=== PATIENT | female | born 1975 | race Caucasian/White ===

== ENCOUNTER 2020-03-07 08:14 | Outpatient (REF) | payer OTHER, SELFPAY ==
--- NOTE | 2020-03-07 08:19 | MM_ITS ---
EXAMINATION: MM SCREENING DIGITAL BREAST TOMOSYNTHESIS, BILATERAL CLINICAL INFORMATION: Screening. Asymptomatic. The lifetime risk of breast cancer based on the Tyrer-Cuzick Model is 12%. COMPARISON: Mammography: 10/19/2018 (baseline). TECHNIQUE: Digital breast tomosynthesis is performed in both the craniocaudal and mediolateral oblique views along with computer-aided detection (CAD). Synthesized 2D images are generated from the tomosynthesis. Additional bilateral CC views are provided. FINDINGS: There are scattered areas of fibroglandular density (ACR BI-RADS breast composition Category b). There are no significant masses, abnormal calcifications, or other abnormalities. There is small stable nodule central left breast again seen. No significant changes from prior baseline exam. MM/MM tomosynthesis screening BI IMPRESSION: No mammographic evidence of malignancy. ASSESSMENT: BI-RADS 2: Benign RECOMMENDATION: Routine annual mammography screening. This patient's information was entered into a reminder system with a target due date for their next mammogram.
== END 2020-03-07 08:15 | disposition home or self-care (01) ==
LOC: HO.MAMMO 08:14
PROVIDERS: PCP Nurse Practitioner Family; Visit Provider Nurse Practitioner Family
DX: Z12.31 Encounter for screening mammogram for malignant neoplasm of breast (principal)
CPT/HCPCS: 77063; 77067

== ENCOUNTER 2020-03-31 10:40 | Outpatient (REF) | payer OTHER, SELFPAY ==
[2020-03-31 14:37] LABS: Alanine Aminotransferase 14 U/L (0-31); Albumin Level 4.2 g/dL (3.5-5.0); Alkaline Phosphatase 82 U/L (39-117); Anion Gap 12 (12-20); Aspartate Amino Transferase 12 U/L (5-31); Bilirubin Total 0.4 mg/dL (0.0-1.0); Blood Urea Nitrogen 11 mg/dL (9-16); Calcium 8.9 mg/dL (8.4-10.2); Carbon Dioxide 30 mmol/L (22-29); Chloride 102 mmol/L (96-108); Cholesterol 161 mg/dL; Estimated Glomerular Filt Rate > 60; Glucose Fasting 86 mg/dL (60-99); HDL Cholesterol 44 mg/dL; LDL Cholesterol Calculated 103 mg/dl; Potassium 4.7 mmol/l (3.3-5.1); Sodium 139 mmol/L (135-145); Total Protein 6.9 g/dL (6.5-8.0); Triglycerides 74 mg/dL
== END 2020-03-31 10:41 | disposition home or self-care (01) ==
LOC: HO.HMGCLDS 10:40
PROVIDERS: PCP Nurse Practitioner Family; Visit Provider Nurse Practitioner Family
DX: Z00.00 Encounter for general adult medical examination without abnormal findings (principal)
CPT/HCPCS: 80053; 80061; 84443

== ENCOUNTER 2020-04-16 16:18 | Outpatient (REF) | payer OTHER, SELFPAY ==
--- NOTE | 2020-04-16 16:22 | US_ITS ---
EXAMINATION: US THYROID CLINICAL INFORMATION: Nontoxic goiter, unspecified. COMPARISON: None TECHNIQUE: Linear transducer wong-scale and color Doppler examination with attention to the region of the thyroid. FINDINGS: SIZE: Measurements of the thyroid lobes and nodules are given in sagittal, anteroposterior and transverse dimensions respectively. Right Thyroid Lobe: 5 x 1.9 x 2.2 cm, volume 10.7 mL. Parenchyma: The gland echotexture is homogeneous. Thyroid vascularity is normal. Left Thyroid Lobe: 4.8 x 1.3 x 1.6 cm, volume 5.3 mL. Parenchyma: The gland echotexture is homogeneous. Thyroid vascularity is normal. Isthmus: 0.5 cm in maximum AP dimension. RIGHT THYROID LOBE: There are 3 nodules seen. 1. Location: Superior. Size: 0.5 x 0.4 x 0.6 cm. Nodule characteristics: Hypoechoic, smoothly marginated with no intranodular flow, simple cyst. 2. Location: Middle. Size: 0.3 x 0.2 x 0.3 cm. Nodule characteristics: Hypoechoic, smoothly marginated with no intranodular flow, likely simple cyst. 3. Location: Inferior. Size: 1.8 x 0.9 x 1.5 cm. Nodule characteristics: Isoechoic, smoothly marginated with intranodular flow, solid lesion. ISTHMUS: No nodules. LEFT THYROID LOBE: There is 1 nodule seen. 1. Location: Inferior. Size: 0.4 x 0.4 x 0.3 cm. Nodule characteristics: Hypoechoic, smoothly marginated with no intranodular flow, likely simple cyst. NODES: No lymphadenopathy is seen in the tissue surrounding the thyroid gland. US/US thyroid IMPRESSION: Solid nodule lower pole left thyroid lobe measuring 1.8 cm, mildly vascular. As per ACR TI-RADS, the lesion is mildly suspicious with a score of 3.
== END 2020-04-16 16:19 | disposition home or self-care (01) ==
LOC: HO.US 16:18
PROVIDERS: PCP Nurse Practitioner Family; Visit Provider Nurse Practitioner Family
DX: E04.9 Nontoxic goiter, unspecified (principal)
CPT/HCPCS: 76536

== ENCOUNTER 2020-06-24 09:48 | Outpatient (REF) | payer OTHER, SELFPAY | END 2020-06-24 09:49 | disposition home or self-care (01) | LOC: HO.LAB 09:48 | PROVIDERS: Visit Provider Internal Medicine | DX: Z20.822 Contact with and (suspected) exposure to COVID-19 (principal) | CPT/HCPCS: 36415; C9803; U0003; U0005 ==

== ENCOUNTER → 2020-07-06 07:39 | Outpatient (BNVA) | payer OTHER, SELFPAY | PROVIDERS: PCP Nurse Practitioner Family; Referring Provider Nurse Practitioner Family; Visit Provider Internal Medicine ==

== ENCOUNTER 2020-07-07 07:26 | Outpatient (REF) | payer OTHER, SELFPAY ==
[2020-07-07 08:17] LABS: Estimated Average Glucose 117 mg/dL; Hemoglobin A1c % 5.7 %
[2020-07-07 08:18] LABS: Glucose Fasting 98 mg/dL (60-99)
[2020-07-07 08:25] LABS: Alanine Aminotransferase 16 U/L (0-31); Albumin Level 3.9 g/dL (3.5-5.0); Alkaline Phosphatase 73 U/L (39-117); Anion Gap 12 (12-20); Aspartate Amino Transferase 12 U/L (5-31); Bilirubin Total 0.6 mg/dL (0.0-1.0); Blood Urea Nitrogen 10 mg/dL (9-16); Calcium 8.5 mg/dL (8.4-10.2); Carbon Dioxide 25 mmol/L (22-29); Chloride 105 mmol/L (96-108); Cholesterol 136 mg/dL; Estimated Glomerular Filt Rate > 60; Glucose Random 97 mg/dL (60-115); HDL Cholesterol 43 mg/dL; LDL Cholesterol Calculated 80 mg/dl; Potassium 4.5 mmol/L (3.3-5.1); Sodium 137 mmol/L (135-145); Total Protein 6.3 g/dL (6.5-8.0); Triglycerides 65 mg/dL
[2020-07-07 08:47] LABS: Free T4 (Free Thyroxine) 0.87 ng/dL (0.71-1.85); HCG Quantitative < 2 mIU/mL; Thyroid Stimulating Hormone 1.58 uIU/mL (0.32-4.0); Vitamin D 25-OH Total 8.4 ng/mL (>30)
[2020-07-07 10:02] LABS: Glucose 1 Hour 170 mg/dL
[2020-07-07 11:03] LABS: Glucose 2 Hour 87 mg/dL
[2020-07-08 23:26] LABS: Adrenocorticotropic Hormone 10 pg/mL (6-50)
[2020-07-09 13:53] LABS: LDL Cholesterol Direct 79 mg/dL (<100)
[2020-07-09 18:41] LABS: Follicle Stimulating Hormone 3.3 mIU/mL; Lutenizing Hormone 5.6 mIU/mL; Prolactin 14.1 ng/mL
[2020-07-09 19:06] LABS: DHEA Sulfate 140 mcg/dL (19-231); Sex Hormone Binding Globulin 30 nmol/L (17-124)
[2020-07-10 01:02] LABS: Estradiol Ultra Sensitive 220 pg/mL
[2020-07-10 17:57] LABS: Androstenedione 94 ng/dL
[2020-07-11 19:26] LABS: Testosterone, Free 2.7 pg/mL (0.1-6.4); Testosterone, Total 20 ng/dL (2-45)
[2020-07-15 21:53] LABS: Estradiol Free 5.16 pg/mL; Estradiol, Ultrasensitive 220 pg/mL
== END 2020-07-07 07:27 | disposition home or self-care (01) ==
LOC: HO.LAB 07:26
PROVIDERS: PCP Nurse Practitioner Family; Visit Provider Internal Medicine
DX: N92.6 Irregular menstruation, unspecified (principal); E55.9 Vitamin D deficiency, unspecified
CPT/HCPCS: 36415; 80053; 80061; 82024; 82157; 82306; 82533; 82627; 82670; 82681; 83001; 83002; 83036; 83498; 83721; 84146; 84270; 84402; 84403; 84439; 84443; 84702

== ENCOUNTER 2020-08-20 07:39 | Outpatient (REF) | payer OTHER, SELFPAY ==
[2020-08-20 08:05] LABS: COVID-19 Test Negative (Negative)
== END 2020-08-20 07:40 | disposition home or self-care (01) ==
LOC: HO.LAB 07:39
PROVIDERS: Visit Provider Internal Medicine
DX: Z20.822 Contact with and (suspected) exposure to COVID-19 (principal)
CPT/HCPCS: 36415; 87635; C9803

== ENCOUNTER 2021-04-05 08:31 | Outpatient (REF) | payer OTHER, SELFPAY | END 2021-04-05 08:32 | disposition home or self-care (01) | LOC: HO.HMGCLDS 08:31 | PROVIDERS: Internal Medicine; PCP Nurse Practitioner Family; Visit Provider Nurse Practitioner Family | DX: Z20.822 Contact with and (suspected) exposure to COVID-19 (principal) | CPT/HCPCS: C9803; U0003; U0005 ==

== ENCOUNTER 2021-07-22 08:17 | Outpatient (REF) | payer OTHER, SELFPAY ==
[2021-07-23 12:26] LABS: CT PCR NOT DETECTED (Not Detect.); NG PCR NOT DETECTED (Not Detect.)
[2021-07-23 13:15] LABS: BV Int Neg Control Negative (Negative); BV Int Pos Control Positive (Positive)
[2021-07-26 14:26] LABS: HPV mRNA E6/E7 rflx Not Detected (Not Detected)
== END 2021-07-22 08:18 | disposition home or self-care (01) ==
LOC: HO.LAB 08:17
PROVIDERS: Visit Provider Advanced Practice Midwife
DX: Z01.411 Encounter for gynecological examination (general) (routine) with abnormal findings (principal); Z11.51 Encounter for screening for human papillomavirus (HPV); N92.6 Irregular menstruation, unspecified; N93.9 Abnormal uterine and vaginal bleeding, unspecified; E04.2 Nontoxic multinodular goiter; E66.9 Obesity, unspecified; Z20.2 Contact with and (suspected) exposure to infections with a predominantly sexual mode of transmission; Z87.42 Personal history of other diseases of the female genital tract
CPT/HCPCS: 81025; 87480; 87491; 87510; 87591; 87624; 87660; 88142

== ENCOUNTER 2021-08-11 12:17 | Outpatient (REF) | payer OTHER, SELFPAY ==
--- NOTE | ~2021-08-11 | US_ITS ---
EXAMINATION: US PELVIS CLINICAL INFORMATION: Irregular menstruation. COMPARISON: 06/19/2014 TECHNIQUE: Ultrasound of the pelvis is performed using both transabdominal and transvaginal transducers along with Doppler. Transvaginal imaging is performed due to inadequate visualization transabdominally. FINDINGS: Uterus: The uterus is measuring 13.5 x 4.7 x 7.5 cm. Anteverted. Retroflexed. The endometrial thickness is measured at 1.4 cm. The uterus is demonstrating a probable myometrial fibroid on the left measuring 3.7 x 4 x 2.5 cm. On the imaging submitted a submucosal component cannot be excluded. In the lower uterine segment a probable small fibroid at 2.5 x 1.7 x 2.4 cm near the cervix. No other evidence for fibroid change. The right ovary is not seen. Left ovary is not seen. US/US pelvic and transvaginal IMPRESSION: Exam is limited due to patient body habitus and only partially filled bladder. The endometrial thickness is measured at 1.4 cm. This could be normal for later phase of the cycle. Otherwise hyperplasia or polyp formation cannot be excluded. Two fibroids are identified here on the left. Submucosal component involving the larger fibroid cannot be excluded.
== END 2021-08-11 12:18 | disposition home or self-care (01) ==
LOC: HO.US 12:17
PROVIDERS: Visit Provider Advanced Practice Midwife
DX: N92.6 Irregular menstruation, unspecified (principal); N93.9 Abnormal uterine and vaginal bleeding, unspecified; E04.2 Nontoxic multinodular goiter; E66.9 Obesity, unspecified; Z87.42 Personal history of other diseases of the female genital tract
CPT/HCPCS: 76830; 76856

== ENCOUNTER 2021-08-27 13:34 | Outpatient (REF) | payer OTHER, SELFPAY | END 2021-08-27 13:35 | disposition home or self-care (01) | LOC: HO.LAB 13:34 | PROVIDERS: PCP Nurse Practitioner Family; Visit Provider Advanced Practice Midwife | DX: N92.6 Irregular menstruation, unspecified (principal); N93.9 Abnormal uterine and vaginal bleeding, unspecified; E66.01 Morbid (severe) obesity due to excess calories; R93.89 Abnormal findings on diagnostic imaging of other specified body structures | CPT/HCPCS: 58100; 81025; 88305 ==

== ENCOUNTER → 2021-09-03 13:00 | Outpatient (BNVA) | payer OTHER, SELFPAY | PROVIDERS: Visit Provider Advanced Practice Midwife | DX: R93.89 Abnormal findings on diagnostic imaging of other specified body structures (principal) ==

== ENCOUNTER 2021-10-20 14:09 | Outpatient (REF) | payer OTHER, SELFPAY ==
--- NOTE | ~2021-10-20 | MM_ITS ---
EXAMINATION: MM SCREENING DIGITAL BREAST TOMOSYNTHESIS, BILATERAL CLINICAL INFORMATION: Screening. Asymptomatic. The lifetime risk of breast cancer based on the Tyrer-Cuzick Model is 10%. COMPARISON: Mammography: 03/07/2020, 10/19/2018 (baseline) TECHNIQUE: Digital breast tomosynthesis is performed in both the craniocaudal and mediolateral oblique views along with computer-aided detection (CAD). Synthesized 2D images are generated from the tomosynthesis. FINDINGS: There are scattered areas of fibroglandular density (ACR BI-RADS breast composition Category b). There are no significant masses, abnormal calcifications, or other abnormalities. There is stable small circumscribed nodule central left breast similar to prior study. No developing density. The axilla are unremarkable. No significant changes. MM/MM tomosynthesis screening BI IMPRESSION: No mammographic evidence of malignancy. ASSESSMENT: BI-RADS 2: Benign RECOMMENDATION: Routine annual mammography screening. This patient's information was entered into a reminder system with a target due date for their next mammogram.
== END 2021-10-20 14:10 | disposition home or self-care (01) ==
LOC: HO.MAMMO 14:09
PROVIDERS: Visit Provider Obstetrics & Gynecology
DX: Z12.31 Encounter for screening mammogram for malignant neoplasm of breast (principal)
CPT/HCPCS: 77063; 77067

== ENCOUNTER 2021-12-30 09:44 | Outpatient (REF) | payer OTHER, SELFPAY ==
--- NOTE | 2021-12-30 10:23 | P.BOP_ITS ---
Brief Operative Note Date of Service: 12/30/21 Pre-op diagnosis: Thyroid Nodule Procedure: This is doctor Elizabeth Schulte. This is an ultrasound-guided fine-needle aspiration report. Date of Examination: Indication: Multinodular Thyroid Porcedure: Procedure was explained to the patient. Alternatives, the risk and benefits were discussed. Written consent was obtained. A time-out was also obtained. After sterile preparation, fine-needle aspiration of a right lower pole 1.8 cm thyroid nodule was performed using direct ultrasound guidance to confirm accurate needle placement. Four aspirations were made using 27 gauge needles. One additional aspiration was made using a 25 guage needle. Samples were submitted for cytology. 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 The patient tolerated the procedure well. Aftercare instructions were provided. Impression: Uncomplicated fine needle aspiration biopsy of a right lower pole 1.8 cm thyroid nodule under ultrasound guidance. Surgeon: Elizabeth Schulte, DO Was an Structural Steel Trades Worker used for this Procedure?: No Estimated blood loss (mL): 0
[2021-12-30 10:45] LABS: MANUAL DIFF FLAG NO
[2021-12-30 11:41] LABS: Hematocrit 39.6 % (37.0-47.0); Hemoglobin 12.5 g/dl (12.0-16.0); Mean Corpuscular HGB Conc 31.6 g/dl (31.0-35.0); Mean Corpuscular Hemoglobin 26.4 pg (27.0-33.0); Mean Corpuscular Volume 83.7 fL (80.0-98.0); Mean Platelet Volume 8.8 fL (9.4-12.3); Platelet Count 382 X10*3/uL (160-400); Red Blood Count 4.73 X10*6/uL (4.20-5.50); Red Cell Distribution Width 14.3 % (11.0-16.0); White Blood Count 8.9 X10*3/uL (4.8-10.8)
[2021-12-30] MEDS: Lidocaine HCl 1 % MPF 5 ML VIAL 2 ML SUBCUT (11:41)
[2021-12-30 11:42] LABS: Basophils Percent Auto 0.3 % (0-2); Eosinophils Absolute Auto 0.1 X10*3/uL (0.0-0.4); Eosinophils Percent Auto 1.2 % (0-4); Hematocrit 39.6 % (37.0-47.0); Hemoglobin 12.5 g/dl (12.0-16.0); Imm Gran Abs Auto 0.04 X10*3/uL (0.00-0.03); Imm Gran Pct Auto 0.4 % (0.0-0.4); Lymphocytes Absolute Auto 2.4 X10*3/uL (1.2-4.9); Lymphocytes Percent Auto 26.8 % (20-40); Mean Corpuscular HGB Conc 31.6 g/dl (31.0-35.0); Mean Corpuscular Hemoglobin 26.4 pg (27.0-33.0); Mean Corpuscular Volume 83.7 fL (80.0-98.0); Mean Platelet Volume 8.8 fL (9.4-12.3); Monocytes Absolute Auto 0.6 X10*3/uL (0.1-1.2); Monocytes Percent Auto 6.9 % (2-11); Neutrophils Absolute Auto 5.8 x10*3/uL (2.0-8.3); Neutrophils Percent Auto 64.4 % (45-73); Platelet Count 380 X10*3/uL (160-400); Red Blood Count 4.73 X10*6/uL (4.20-5.50); Red Cell Distribution Width 14.2 % (11.0-16.0)
[2021-12-30 11:42] LABS: Appearance Urine Clear; Color Urine Yellow; Glucose Urine UA Negative (Negative); Leukocyte Esterase Urine Negative (Negative); Nitrite Urine Negative (Negative); Urine Blood Negative (Negative); Urine Ketones Negative (Negative); Urine Protein Negative (Neg-Trace)
[2021-12-30 12:11] LABS: HCG Quantitative < 2 mIU/mL
[2021-12-30 12:18] LABS: Alanine Aminotransferase 15 U/L (0-31); Albumin Level 4.1 g/dL (3.5-5.0); Alkaline Phosphatase 81 U/L (39-117); Anion Gap 14 (12-20); Aspartate Amino Transferase 11 U/L (5-31); Bilirubin Total 0.5 mg/dL (0.0-1.0); Blood Urea Nitrogen 10 mg/dL (9-16); Calcium 9.3 mg/dL (8.4-10.2); Carbon Dioxide 28 mmol/L (22-29); Chloride 104 mmol/L (96-108); Cholesterol 138 mg/dL; Estimated Glomerular Filt Rate > 60; Glucose Fasting 89 mg/dL (60-99); HDL Cholesterol 38 mg/dL; LDL Cholesterol Calculated 86 mg/dl; Potassium 4.8 mmol/L (3.3-5.1); Sodium 141 mmol/L (135-145); Total Protein 6.6 g/dL (6.5-8.0); Triglycerides 73 mg/dL
[2021-12-30 12:40] LABS: TSH reflex Free T4 1.19 uIU/mL (0.32-4.0)
== END 2021-12-30 09:45 | disposition home or self-care (01) ==
LOC: HO.US 09:44
PROVIDERS: Obstetrics & Gynecology; Absent Provider Nurse Practitioner Family; PCP Nurse Practitioner Family; Visit Provider Internal Medicine
DX: Z00.00 Encounter for general adult medical examination without abnormal findings (principal); E04.2 Nontoxic multinodular goiter; N93.9 Abnormal uterine and vaginal bleeding, unspecified
CPT/HCPCS: 10005; 36415; 80053; 80061; 81003; 84443; 84702; 85025; 85027; 88172; 88173

== ENCOUNTER 2022-09-01 07:25 | Day surgery (SDC) | payer OTHER, SELFPAY ==
[2022-08-30 12:40] VITALS: BMI 40.5
--- NOTE | 2022-08-31 12:36 | HO.ANESPROP2 ---
Documented by User: Cassandra Pino NP 08/31/22 12:37 HPI - Anesthesia Eval Consult details Narrative: 46yo F for Upper Endoscopy and Colonoscopy [facility] Active Problems Active Problems: All Active Problems (Updated 11/09/21 @ 17:46 by Heladio Castañeda, [facility]) Physical exam (Acute) Screening for colon cancer (Acute) Abnormal uterine bleeding (Acute) Uterine myoma (Acute) Obesity, morbid, BMI 40.0-49.9 (Acute) Thickened endometrium (Acute) Abnormal bleeding in menstrual cycle (Acute) History of PCOS (Acute) Vitamin D deficiency (Acute) Irregular menses (Acute) Multinodular thyroid (Acute) Thyroid nodule (Acute) Skin lesion (Acute) Enlarged thyroid (Acute) Obese (Acute) Physical exam (Acute) Screening for cervical cancer (Acute) Past Medical History Medical History Anxiety Irregular menses Multinodular thyroid Vitamin D deficiency Family History Family History Father Diabetes mellitus HTN (hypertension) CVD (cardiovascular disease) Substance use disorder Mother Drug addict End stage liver disease Asthma Substance use disorder Brother Substance use disorder Sister No problems noted. Maternal Aunt Family history of thyroid problem Paternal Aunt Substance use disorder Paternal Uncle Substance use disorder Surgical History Surgical History Hiatal hernia History of back surgery History of laparoscopy Hx of biopsy Social History Social History Household Members: Significant Other Housing: House Alcohol intake: current Alcohol intake frequency: holidays/special occasions only Patient Tobacco Use Status: Former Tobacco user Quit Date: quit 9 years Cigarette Packs Per Day: 1 Years Smoked: 30 e-Cigarette/Vaping Use: Never Used Second Hand Smoke Exposure: No service: No Current occupational status: employed Current occupation: [employer] Current occupational exposures/hazards: No Cognitive needs: No Hearing needs: No Vision needs: No Meds Allergies Allergy/AdvReac Type Severity Reaction Status Date / Time No Known Allergies Allergy Verified 01/27/22 14:35 [No Known Allergies*] Exam Exam Date and Time: August 31, 2022 1236 Height,Weight and Vital Signs: Height 5 ft 10 in Weight 127.913 kg Assessment and Plan Assessment Anesthesia Assessment: Chart Reviewed Documented by User: Fredis Hagan MD 09/01/22 18:15 [facility] Past Medical History Medical History Anxiety Irregular menses Multinodular thyroid Vitamin D deficiency Family History Family History Father Diabetes mellitus HTN (hypertension) CVD (cardiovascular disease) Substance use disorder Mother Drug addict End stage liver disease Asthma Substance use disorder Brother Substance use disorder Sister No problems noted. Maternal Aunt Family history of thyroid problem Paternal Aunt Substance use disorder Paternal Uncle Substance use disorder Family history of problems with anesthesia: No Surgical History Surgical History Hiatal hernia History of back surgery History of laparoscopy Hx of biopsy History of Problems with Anesthesia: No Social History Social History Household Members: Significant Other Housing: House Alcohol intake: current Alcohol intake frequency: holidays/special occasions only Patient Tobacco Use Status: Former Tobacco user Quit Date: quit 9 years Cigarette Packs Per Day: 1 Years Smoked: 30 e-Cigarette/Vaping Use: Never Used Second Hand Smoke Exposure: No service: No Current occupational status: employed Current occupation: [employer] Current occupational exposures/hazards: No Cognitive needs: No Hearing needs: No Vision needs: No Meds Allergies Allergy/AdvReac Type Severity Reaction Status Date / Time No Known Allergies Allergy Verified 01/27/22 14:35 [No Known Allergies*] Exam Airway Mallampati Class: III Loose/Missing/Broken Teeth: Yes Assessment and Plan Assessment Anesthesia Assessment: Anesthesia Plan Discussed Final Anesthetic Review Family History of Problems with Anesthesia: No History of Problems with Anesthesia: No NPO: Yes ASA Class: III Final Preanesthetic Review: Meds/Allgs Chart Reviewed, Consent Obtained/Reviewed and Anes Risks/Benef Reviewed Patient Risk: Intermediate Procedure Risk: Intermediate Anesthetic Plan Anesthetic Plan: MAC: and Agree w/ Assess. and Plan Disposition: Standard PACU
[2022-09-01 08:14] LABS: UPreg QC Valid YES
[2022-09-01 08:16] LABS: Urine Pregnancy NEGATIVE (NEGATIVE)
[2022-09-01 08:28] VITALS: BP 135/63; PULSE 61; RESP 16; TEMP 36.1; O2SAT 97; BMI 39.0
--- NOTE | 2022-09-01 08:46 | MHC.SHP ---
Pre-Procedural Eval Section A Date of Service: 09/01/22 Section B Chief Complaint: Constipation, unspecified,Other specified post Details of Present Illness: hx of reflux and hiatal hernia repair Relevant Family History (Specify if Yes): No Relevant Social History: None Present Medications: see Short Stay Collaborative assessment Medical History: Significant History (Anxiety Irregular menses Multinodular thyroid Vitamin D deficiency) History of Previous Operations: Relevant previous surgery/procedure and date(s) ( Hiatal hernia History of back surgery History of laparoscopy Hx of biopsy) Allergies: Allergies Allergy/AdvReac Type Severity Reaction Status Date / Time No Known Allergies Allergy Verified 01/27/22 14:35 [No Known Allergies*] Review of Systems Sugical H&P ROS: Negative: Constitution, Cardiovascular, Respiratory, Neurological, Psychiatric, Hem-Onc, Allergic/Immunologic, Gastrointestinal, Genitourinary, Musculoskeletal, Integumentary, Endocrine and Eyes/Ears/Nose/Throat Exam Surgical H&P Exam: Normal: HEENT, Normal: Heart, Normal: Lungs, Normal: Extremities, Normal: Abdomen, Normal: Skin and Normal: Neurological Plan Diagnosis/Plan: Unchanged I have reviewed the history and physical and performed a pertinent physical examination on my patient. No changes have occurred unless specified. Time Spent With Patient Time: Total time managing care of this patient today ____ minutes.
--- NOTE | 2022-09-01 08:47 | P.OP_ITS ---
Operative Note Operative Note Date of Service: 09/01/22 Narrative: Operative Information Procedure Description: EGD, Colonoscopy Indication: hx of GERD and abn bowel habits Anesthesia: MAC FLEXIBLE TRANSORAL UPPER GASTROINTESTINAL ENDOSCOPY AND COLONOSCOPY PROCEDURE NOTE UPPER ENDOSCOPY Consent: Indications for the procedure and potential complications of bleeding, perforation, reaction to medications and missed diagnosis were discussed with the patient and informed consent was obtained. Instrument: Olympus GIF H 190 J mid size upper endoscope Monitoring: Vital signs and clinical assessment, continuous EKG monitoring, Pulse oximetry, Carbon Dioxide monitoring and blood pressure monitoring were done throughout the procedure. Procedure: The patient was placed in the left lateral decubitis position and pre-procedure medications were administered and a bite block was placed. The endoscope was inserted into the mouth and advanced under direct vision to the third part of duodenum. A careful inspection was made as the upper endoscope was withdrawn including a retroflexed examination of the proximal stomach; Findings and interventions are described below. Findings: Larynx:normal Esophagus: GE junction at 36 cm, diaphragm hiatus at 36 cm, tongues of salmon pink tissue with islands of normal esophgeal tissue C0M6, biopsies and brushings taken for Barretts. No focal nodularity noted. Stomach: Normal mucosa. Prior fundoplication noted retroflexed examination of the cardia. Duodenum: Normal bulb and descending duodenum, Intervention: Biopsies as noted above and brushings COLONOSCOPY Instrument: Olympus variable stiffness Adult scope 190L Colonoscopy Monitoring: Vital signs and clinical assessment, continuous EKG monitoring, Pulse oximetry, Carbon Dioxide monitoring and blood pressure monitoring were done throughout the procedure. Colon withdrawal time was 8 minutes. Procedure: The patient was placed in the left lateral decubitis position and pre-procedure medications were administered. After a digital rectal examination of the ano-rectum, the video colonoscope was inserted into the rectum and advanced through the colon to the cecum/TI. The colonoscope was slowly withdrawn in a retrograde panoramic fashion and the colon mucosa was carefully examined including a retroflexed view of the rectum. Findings and interventions are described below. Procedure Difficulty: easy Findings: Terminal Ileum-normal, bx taken Random colon bx taken of colon Cecum:normal Ascending Colon: normal Transverse Colon -normal Descending Colon:normal Sigmoid Colon: 10 mm sessile polyp removed with cold snare Rectum: Retroflexion with small internal hemorrhoids, grade I Anorectum - normal Colon preparation: [place] Bowel Preparation Scale Right colon; 2 Transverse colon: 2 Left colon; 2 (0 = Unprepared colon segment with mucosa not seen due to solid stool that cannot be cleared. 1 = Portion of mucosa of the colon segment seen, but other areas of the colon segment not well seen due to staining, residual stool and/or opaque liquid. 2 = Minor amount of residual staining, small fragments of stool and/or opaque liquid, but mucosa of colon segment seen well. 3 = Entire mucosa of colon segment seen well with no residual staining, small fragments of stool or opaque liquid) Impression and Post Procedure Diagnosis: Endoscopy Findings: barretts esophagus Colonoscopy Findings: polyp internal hemorrhoids Plan: Await Pathology results Repeat Colonoscopy in 5 years due to polyp or earlier if clinically indicated High fiber diet leaflet avoid straining at stool, epsom salts and sitz bath, anusol supps or cream repeat EGD in 6 months or earlier if dysplasia noted for bx per [place] protocol --will need to be on PPI Above findings were reviewed with the patient and relevant handouts were provided if indicated.
[2022-09-01 09:53] VITALS: BP 96/54; PULSE 66; RESP 16; TEMP 35.9; O2SAT 97
[2022-09-01 10:08] VITALS: BP 97/55; PULSE 52; RESP 16; TEMP 36.4; O2SAT 97
[2022-09-01 10:25] VITALS: BP 109/64; PULSE 60; RESP 18; TEMP 36.6; O2SAT 98
== END 2022-09-01 11:00 | disposition home or self-care (01) ==
PROVIDERS: Nurse Practitioner; PCP Nurse Practitioner Family; Visit Provider Internal Medicine Gastroenterology
PROC: (CPT 45385; principal; 2022-09-01 09:00)
DX: Z12.11 Encounter for screening for malignant neoplasm of colon (principal); D12.5 Benign neoplasm of sigmoid colon; K64.0 First degree hemorrhoids; K59.00 Constipation, unspecified; K21.9 Gastro-esophageal reflux disease without esophagitis; K22.70 Barrett's esophagus without dysplasia; K44.9 Diaphragmatic hernia without obstruction or gangrene; E04.2 Nontoxic multinodular goiter; E55.9 Vitamin D deficiency, unspecified; F41.1 Generalized anxiety disorder; Z98.890 Other specified postprocedural states; Z87.891 Personal history of nicotine dependence
CPT/HCPCS: 45385; 45380; 43239; 81025; 88305

== ENCOUNTER 2022-11-15 16:21 | Outpatient (AMB) | payer OTHER, SELFPAY ==
[2022-11-15 16:42] VITALS: BP 110/72; PULSE 77; O2SAT 98; BMI 38.7
--- NOTE | 2022-11-15 16:42 | MHC.PC.OV ---
Vital Signs 11/15/22 16:42 Height 5 ft 10 in Weight 270 lb BMI 38.7 BP 110/72 Blood Pressure Location Rt brachial Position Sitting Pulse 77 Pulse Source Pulse Oximeter Pulse Oximetry (%) 98 Oxygen Delivery Method Room Air Intake Visit Reasons: PE Allergies No Known Allergies [No Known Allergies*] Allergy (Verified 11/15/22 16:44) Tobacco use date assessed: 11/15/22 Dental Screening Dental Screen Date: 11/15/22 Did you have a dental visit in the last 12 months?: No Did you have a dental problem in the last 6 months where you did not have access to dental care?: No Was dental information given to patient?: Patient has dentist HPI PE HPI Details Pt is here for a PE. Will order labs. Colon screen is up to date. 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 Due for mammo, pt reports she will call herself, they sent me a letter . Pt has a email campaign specialist, planning for hysterectomy in dec. Seeing endo for her thyroid PFSH Medical History Anxiety Brown's esophagus Irregular menses Multinodular thyroid Vitamin D deficiency Surgical History Hiatal hernia History of back surgery History of laparoscopy Hx of biopsy Family History Father Diabetes mellitus HTN (hypertension) CVD (cardiovascular disease) Substance use disorder Mother Drug addict End stage liver disease Asthma Substance use disorder Brother Substance use disorder Sister No problems noted. Maternal Aunt Family history of thyroid problem Paternal Aunt Substance use disorder Paternal Uncle Substance use disorder Social History Household Members: Significant Other Housing: House Alcohol intake: current Alcohol intake frequency: holidays/special occasions only Patient Tobacco Use Status: Former Tobacco user Quit Date: quit 9 years Cigarette Packs Per Day: 1 Years Smoked: 30 e-Cigarette/Vaping Use: Never Used Second Hand Smoke Exposure: No service: No Current occupational status: employed Current occupation: [employer] Current occupational exposures/hazards: No Cognitive needs: No Hearing needs: No Vision needs: No Female Reproductive History Menstrual Age of Menarche: 14 Questionnaire Thrive Questionnaire Date Thrive assessed: 11/09/21 MAHI-7 AMB Questionnaire MAHI-7 Date MAHI - 7 assessed: 11/09/21 Source: Developed by Drs. Brooks Stauffer, Anushka Gutierrez, Todd Bhatti and colleagues, with an educational wang from [employer]. Review of Systems Const Denies chills and Denies fever(s) Eyes Denies blurry vision ENT Denies vertigo, Denies dizziness and Denies sore throat Card Denies chest pain at rest, Denies chest pain with activity, Denies diaphoresis, Denies dyspnea and Denies dyspnea on exertion Resp Denies cough, Denies dyspnea, Denies dyspnea on exertion and Denies wheezing GI Denies abdominal pain, Denies melena, Denies hematochezia, Denies constipation, Denies diarrhea and Denies loose stools Denies hematuria Musc Denies numbness and Denies tingling Skin/Breast Denies lesions Neuro Denies vertigo, Denies dizziness, Denies numbness and Denies tingling Psych Denies anxiety, Denies depression, Denies homicidal ideation, Denies suicidal ideation and Denies other (substance abuse) Aller/Immun Denies wheezing Physical exam (Primary Care) Vital Signs: Last Vital Signs Pulse 77 11/15/22 16:42 BP 110/72 11/15/22 16:42 Pulse Ox 98 11/15/22 16:42 Oxygen Delivery Method Room Air 11/15/22 16:42 BMI result Body Mass Index 38.7 Tobacco/Smoking Status: Tobacco use Status Tobacco use date assessed 11/15/22 11/15/22 16:47 Patient Tobacco Use Status Former Tobacco user 11/15/22 16:44 e-Cigarette/Vaping Use Never Used 11/15/22 16:44 Thrive Assessment: Date of Thrive Assessment Date Thrive assessed 11/09/21 11/15/22 16:44 Const General: cooperative Nutritional Appearance: well nourished and obese Orientation/consciousness: patient oriented x3 HENMT Head: Yes normal to inspection, Yes normocephalic and Yes atraumatic Ears: TM's normal bilaterally Eyes General: appearance normal, both eyes and all related structures Alignment and Position: alignment normal and position normal Neck Other: thyroid felt enlarged, ? left thyroid nodule Neck: Yes normal visual inspection and Yes no lymphadenopathy Resp Effort & Inspection: normal respiratory effort Auscultation: clear to auscultation bilaterally Cardio Rate: regular rate Rhythm: regular rhythm Heart sounds: S1 normal heart sound present, S2 normal heart sound present and no murmurs GI Palpation (GI): Soft to palpation and nontender Auscultation: normal bowel sounds Skin Rashes: no rashes Neuro General: patient oriented x3, moves all extremities, no focal motor deficits and deep tendon reflexes 2+ bilaterally Romberg Test: Negative Psych Appearance: grossly normal Mental Status: mental status grossly normal Speech and movement: Normal speech and movement present Affect: normal affect Attitude: cooperative Thought process: Normal thought process present Thought content: Normal thought content present Insight: Good insight present (Psych) Judgement: Good judgement present (Psych) Assessment and Plan Assessment & Plan (1) Physical exam: Code(s): Z00.00 - Encounter for general adult medical examination without abnormal findings Orders: Orders Comprehensive [place]. Panel Fast Today Z00.00 - Encounter for general adult medical examination without abnormal findings Lipid Panel Today Z00.00 - Encounter for general adult medical examination without abnormal findings Complete Blood Count Auto Diff Today Z00.00 - Encounter for general adult medical examination without abnormal findings UA CC w/rflx Micro + Cult Today Z00.00 - Encounter for general adult medical examination without abnormal findings Coding Level of Care Code Est Pt Prev Care 40-64y(18398) Diagnoses Physical exam Z00.00
== END 2022-11-15 17:07 | disposition home or self-care (01) ==
PROVIDERS: PCP Nurse Practitioner Family; Visit Provider Nurse Practitioner Family
DX: Z00.00 Encounter for general adult medical examination without abnormal findings (principal)
CPT/HCPCS: 99396

== ENCOUNTER 2022-12-17 07:27 | Outpatient (REF) | payer OTHER, SELFPAY ==
[2022-12-17 07:55] LABS: MANUAL DIFF FLAG NO
[2022-12-17 08:19] LABS: Basophils Percent Auto 0.3 % (0-2); Eosinophils Absolute Auto 0.2 X10*3/uL (0.0-0.4); Eosinophils Percent Auto 2.2 % (0-4); Hematocrit 43.2 % (37.0-47.0); Hemoglobin 14.1 g/dl (12.0-16.0); Imm Gran Abs Auto 0.04 X10*3/uL (0.00-0.03); Imm Gran Pct Auto 0.4 % (0.0-0.4); Lymphocytes Absolute Auto 2.4 X10*3/uL (1.2-4.9); Lymphocytes Percent Auto 24.9 % (20-40); Mean Corpuscular HGB Conc 32.6 g/dl (31.0-35.0); Mean Corpuscular Volume 82.8 fL (80.0-98.0); Mean Platelet Volume 8.5 fL (9.4-12.3); Monocytes Absolute Auto 0.7 X10*3/uL (0.1-1.2); Monocytes Percent Auto 6.9 % (2-11); Neutrophils Absolute Auto 6.2 x10*3/uL (2.0-8.3); Neutrophils Percent Auto 65.3 % (45-73); Platelet Count 338 X10*3/uL (160-400); Red Blood Count 5.22 X10*6/uL (4.20-5.50); Red Cell Distribution Width 13.6 % (11.0-16.0); White Blood Count 9.5 X10*3/uL (4.8-10.8)
[2022-12-17 08:55] LABS: Alanine Aminotransferase 13 U/L (0-31); Albumin Level 4.1 g/dL (3.5-5.0); Alkaline Phosphatase 85 U/L (39-117); Anion Gap 11 (12-20); Aspartate Amino Transferase 12 U/L (5-31); Bilirubin Total 0.4 mg/dL (0.0-1.0); Blood Urea Nitrogen 11 mg/dL (9-16); Calcium 10.6 mg/dL (8.4-10.2); Carbon Dioxide 30 mmol/L (22-29); Chloride 106 mmol/L (96-108); Cholesterol 165 mg/dL (<200); Estimated Glomerular Filt Rate > 60; Glucose Fasting 97 mg/dL (60-99); HDL Cholesterol 41 mg/dL (>40); LDL Cholesterol Calculated 105 mg/dL (<100); Potassium 4.6 mmol/L (3.3-5.1); Sodium 142 mmol/L (135-145); Total Protein 7.2 g/dL (6.5-8.0); Triglycerides 96 mg/dL (<150)
[2022-12-17 09:12] LABS: Thyroid Stimulating Hormone 1.81 uIU/mL (0.32-4.0)
[2022-12-17 09:15] LABS: Free T4 (Free Thyroxine) 0.94 ng/dL (0.71-1.85)
[2022-12-17 10:27] LABS: Appearance Urine Clear; Color Urine Yellow; Glucose Urine UA Negative (Negative); Leukocyte Esterase Urine Negative (Negative); Nitrite Urine Negative (Negative); Urine Blood Negative (Negative); Urine Ketones Negative (Negative); Urine Protein Negative (Neg-Trace)
== END 2022-12-17 07:28 | disposition home or self-care (01) ==
LOC: HO.LAB 07:27
PROVIDERS: Internal Medicine; PCP Nurse Practitioner Family; Visit Provider Nurse Practitioner Family
DX: Z00.00 Encounter for general adult medical examination without abnormal findings (principal); E04.2 Nontoxic multinodular goiter; Z13.220 Encounter for screening for lipoid disorders
CPT/HCPCS: 36415; 80053; 80061; 81003; 84439; 84443; 85025

== ENCOUNTER 2022-12-24 07:16 | Outpatient (REF) | payer OTHER, SELFPAY ==
[2022-12-24 08:14] LABS: Glucose Fasting 98 mg/dL (60-99)
[2022-12-24 08:20] LABS: Calcium 10.4 mg/dL (8.4-10.2)
[2022-12-24 08:42] LABS: Vitamin D 25-OH Total 33.8 ng/mL (>30)
[2022-12-24 09:34] LABS: Glucose 1 Hour 199 mg/dL
[2022-12-24 10:30] LABS: Glucose 2 Hour 111 mg/dL
[2022-12-27 16:14] LABS: Calcium (PTHI) 9.2 mg/dL (8.6-10.2); PTHI 21 pg/mL (16-77)
== END 2022-12-24 07:17 | disposition home or self-care (01) ==
LOC: HO.LAB 07:16
PROVIDERS: PCP Nurse Practitioner Family; Visit Provider Internal Medicine
DX: E83.52 Hypercalcemia (principal); N93.9 Abnormal uterine and vaginal bleeding, unspecified
CPT/HCPCS: 36415; 82306; 82310; 83970

== ENCOUNTER 2022-12-29 12:55 | Outpatient (REF) | payer OTHER, SELFPAY ==
--- NOTE | ~2022-12-29 | US_ITS ---
EXAMINATION: US THYROID CLINICAL INFORMATION: Nontoxic multinodular goiter. COMPARISON: US-guided thyroid biopsy 12/30/2021. Ultrasound thyroid 04/16/2020. TECHNIQUE: Linear transducer wong-scale and color Doppler examination with attention to the region of the thyroid. FINDINGS: SIZE: Measurements of the thyroid lobes and nodules are given in sagittal, anteroposterior and transverse dimensions respectively. Right Thyroid Lobe: 4.7 x 2.0 x 1.9 cm, volume 9.3 mL. Previously 5.0 x 1.9 x 2.2 cm, volume 10.7 mL. Parenchyma: The gland echotexture is mildly heterogeneous. Thyroid vascularity is normal. Left Thyroid Lobe: 5.0 x 1.3 x 1.9 cm, volume 6.5 mL. Previously 4.8 x 1.3 x 1.6 cm, volume 5.3 mL. Parenchyma: The gland echotexture is mildly heterogeneous. Thyroid vascularity is normal. Isthmus: 0.4 cm in maximum AP dimension. Previously 0.6 cm. Estimated total number of nodules greater than or equal to 1 cm: 2. 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 Location: Right mid medial. Size: 0.5 x 0.3 x 0.7 cm, volume 0.06 mL. Previously: 0.5 x 0.4 x 0.6 cm, volume 0.06 mL. Nodule characteristics: Composition: Cystic(0). ACR TI-RADS total points: 0 ACR TI-RADS category: 1 Significant change in size (>/= 20% in 2 dimensions and minimal increase of 2 mm or 50% or greater increase in volume): No Change in features: No Change in ACR TI-RADS risk category: No 2. Location: Right inferior. Size: 1.3 x 1.0 x 1.3 cm, volume 0.87 mL. Previously: 1.8 x 0.9 x 1.5 cm, volume 1.27 mL. Nodule characteristics: Composition: Solid (2). Echogenicity: Isoechoic (1). Shape: Not taller than wide (0). Margins: Smooth (0). Echogenic Foci: None (0). ACR TI-RADS total points: 3 Previous: N/A ACR TI-RADS category: 3 Previous: 3 Significant change in size (>/= 20% in 2 dimensions and minimal increase of 2 mm or 50% or greater increase in volume): No Change in features: No Change in ACR TI-RADS risk category: No 3. Location: Posterior to right midpole. Size: 1.5 x 1.1 x 1.4 cm, volume 1.19 mL. Previously: New since the previous study. Nodule characteristics: Composition: Solid (2). Echogenicity: Hypoechoic (2). Shape: Not taller than wide (0). Margins: Smooth (0). Echogenic Foci: None (0). ACR TI-RADS total points: 4 ACR TI-RADS category: 4 4. Location: Posterior to left midpole. Size: 0.9 x 0.5 x 0.6 cm, volume 0.14 mL. Previously: New since the previous study. Nodule characteristics: Composition: Solid (2). Echogenicity: Hypoechoic (2). Shape: Not taller than wide (0). Margins: Smooth (0). Echogenic Foci: None (0). ACR TI-RADS total points: 4 ACR TI-RADS category: 4 NODES: No lymphadenopathy is seen in the tissue surrounding the thyroid gland. US/US thyroid IMPRESSION: 1. A 1.5 cm TR 4 nodule along the posterior aspect of the right mid thyroid lobe could represent an exophytic nodule meeting criteria for biopsy for which fine-needle aspiration would be recommended. Alternatively, this could represent an extrathyroidal nodule, possibly a parathyroid/parathyroid adenoma. Correlation with clinical exam recommended to determine further management including possible biopsy. 2. A 0.9 cm TR 4 nodule identified along the posterior aspect of the left thyroid lobe could represent an extrathyroidal nodule, possibly a parathyroid/parathyroid adenoma. Correlation with clinical exam recommended to determine further management including possible biopsy. This study was presented 01/03/2023 at 8:12 AM for interpretation. PSA staff will provide results to referring provider at this time. ACR TI-RADS RECOMMENDATION REFERENCE: Ultrasound-guided fine-needle aspiration, follow up ultrasound, no further followup. * TR1 (0 point) and TR2 (2 points): No FNA or followup * TR3 (3 points): FNA if more than or equal to 2.5 cm in maximum dimension, follow up ultrasound in 1, 3 and 5 years if 1.5 to 2.4 cm in maximum dimension. * TR4 (4-6 points): FNA if more than or equal to 1.5 cm in maximum dimension, follow up ultrasound in 1, 2, 3 and 5 years if 1 to 1.4 cm in maximum dimension. * TR5 (more than or equal to 7 points): FNA if more than or equal to 1 cm in maximum dimension, follow up ultrasound every year for 5 years if 0.5 to 0.9 cm in maximum dimension. * TR3, TR4 or TR5 nodules that are below the size threshold for follow up receive no followup.
== END 2022-12-29 12:56 | disposition home or self-care (01) ==
LOC: HO.HMGCX 12:55
PROVIDERS: PCP Nurse Practitioner Family; Visit Provider Internal Medicine
DX: E04.2 Nontoxic multinodular goiter (principal)
CPT/HCPCS: 76536

== ENCOUNTER 2023-03-20 16:14 | Outpatient (REF) | payer OTHER, SELFPAY | END 2023-03-20 16:15 | disposition home or self-care (01) | LOC: HO.MAMMO 16:14 | PROVIDERS: PCP Nurse Practitioner Family; Visit Provider Nurse Practitioner Family | DX: Z12.31 Encounter for screening mammogram for malignant neoplasm of breast (principal) | CPT/HCPCS: 77063; 77067 ==

== ENCOUNTER → 2023-03-20 16:30 | Outpatient (BNV) | payer OTHER, SELFPAY | PROVIDERS: PCP Nurse Practitioner Family; Visit Provider Radiology Diagnostic Radiology | DX: Z12.31 Encounter for screening mammogram for malignant neoplasm of breast (principal) | CPT/HCPCS: 77063; 77067 ==

== ENCOUNTER 2023-04-25 14:08 | Outpatient (AMB) | payer OTHER, SELFPAY ==
--- NOTE | 2023-04-25 14:09 | MHC.OFFVIS ---
Intake Vital Signs 04/25/23 14:10 Height 5 ft 10 in Weight 284 lb 13.396 oz BMI 40.9 BP 108/78 Blood Pressure Location Lt brachial Position Sitting Pulse 87 Pulse Source Pulse Oximeter Intake Visit Reasons: F/U NTMNG-confirmed Intake Note: Patient present today for NTMNG follow visit. Last seen 01/27/[address] Green. 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: No Accompanied by: Self / Same As Patient Allergies No Known Allergies [No Known Allergies*] Allergy (Verified 04/25/23 14:13) Medication List - Last Reconciled 04/25/23 by Brooks Lares MD bisacodyl (Dulcolax (bisacodyl)) 10 mg (2 x 5 mg) PO ONCE 1 day bupropion HCl (Wellbutrin SR) 100 mg PO DAILY 90 days cholecalciferol (vitamin D3) 50 mcg PO DAILY 30 days docusate sodium 100 mg PO BEDTIME ibuprofen 800 mg PO DAILY PRN 90 days pantoprazole 20 mg PO DAILY polyethylene glycol 3350 (Miralax) 238 grams PO ONCE sennosides (Senokot) 8.6 mg PO DAILY HPI HPI Comments History of Present Illness Details 47 YO F with PMHx Hirsutism who is seen in consultation for multinodular thyroid and irregular menses at the request of PCP.. The patient last saw Dr. Green on 01/27/2022 1) Multinodular Thyroid: Was initially diagnosed with multinodular thyroid in 2020 with thyroid US revealing a heterogenous gland with multiple bilateral thyroid nodules. TSH has remained WNL. She underwent FNA biopsy 12/2021 of her RLP 1.8 cm thyroid nodule, with cytology revealing atypia of undetermined significance. Affirma was benign. She presents today to review these results. She does have a history of hypothyroidism in a maternal aunt. She also complains of a long history of irregular menses as well as hirsutism of the face. She had significant difficulty with conception in the past. She reportedly had a large cyst removed from her ovary and was told she has PCOS many years ago. Labs were all WNL. Thyroid US: 04/16/2020 Right Thyroid Lobe: 5 x 1.9 x 2.2 cm, volume 10.7 mL. Parenchyma: The gland echotexture is homogeneous. Thyroid vascularity is normal. Left Thyroid Lobe: 4.8 x 1.3 x 1.6 cm, volume 5.3 mL. Parenchyma: The gland echotexture is homogeneous. Thyroid vascularity is normal. Isthmus: 0.5 cm in maximum AP dimension. RIGHT THYROID LOBE: There are 3 nodules seen. 1. Location: Superior. Size: 0.5 x 0.4 x 0.6 cm. Nodule characteristics: Hypoechoic, smoothly marginated with no intranodular flow, simple cyst. 2. Location: Middle. Size: 0.3 x 0.2 x 0.3 cm. Nodule characteristics: Hypoechoic, smoothly marginated with no intranodular flow, likely simple cyst. 3. Location: Inferior. Size: 1.8 x 0.9 x 1.5 cm. Nodule characteristics: Isoechoic, smoothly marginated with intranodular flow, solid lesion. ISTHMUS: No nodules. LEFT THYROID LOBE: There is 1 nodule seen. 1. Location: Inferior. Size: 0.4 x 0.4 x 0.3 cm. Nodule characteristics: Hypoechoic, smoothly marginated with no intranodular flow, likely simple cyst. NODES: No lymphadenopathy is seen in the tissue surrounding the thyroid gland. Labs: FINDINGS: SIZE: Measurements of the thyroid lobes and nodules are given in sagittal, anteroposterior and transverse dimensions respectively. Right Thyroid Lobe: 4.7 x 2.0 x 1.9 cm, volume 9.3 mL. Previously 5.0 x 1.9 x 2.2 cm, volume 10.7 mL. Parenchyma: The gland echotexture is mildly heterogeneous. Thyroid vascularity is normal. Left Thyroid Lobe: 5.0 x 1.3 x 1.9 cm, volume 6.5 mL. Previously 4.8 x 1.3 x 1.6 cm, volume 5.3 mL. Parenchyma: The gland echotexture is mildly heterogeneous. Thyroid vascularity is normal. Isthmus: 0.4 cm in maximum AP dimension. Previously 0.6 cm. Estimated total number of nodules greater than or equal to 1 cm: 2. Clinical Transformation Specialist nodules are described as follows: 1. Location: Right mid medial. Size: 0.5 x 0.3 x 0.7 cm, volume 0.06 mL. Previously: 0.5 x 0.4 x 0.6 cm, volume 0.06 mL. Nodule characteristics: Composition: Cystic(0). ACR TI-RADS total points: 0 ACR TI-RADS category: 1 Significant change in size (>/= 20% in 2 dimensions and minimal increase of 2 mm or 50% or greater increase in volume): No Change in features: No Change in ACR TI-RADS risk category: No 2. Location: Right inferior. Size: 1.3 x 1.0 x 1.3 cm, volume 0.87 mL. Previously: 1.8 x 0.9 x 1.5 cm, volume 1.27 mL. Nodule characteristics: Composition: Solid (2). Echogenicity: Isoechoic (1). Shape: Not taller than wide (0). Margins: Smooth (0). Echogenic Foci: None (0). ACR TI-RADS total points: 3 Previous: N/A ACR TI-RADS category: 3 Previous: 3 Significant change in size (>/= 20% in 2 dimensions and minimal increase of 2 mm or 50% or greater increase in volume): No Change in features: No Change in ACR TI-RADS risk category: No 3. Location: Posterior to right midpole. Size: 1.5 x 1.1 x 1.4 cm, volume 1.19 mL. Previously: New since the previous study. Nodule characteristics: Composition: Solid (2). Echogenicity: Hypoechoic (2). Shape: Not taller than wide (0). Margins: Smooth (0). Echogenic Foci: None (0). ACR TI-RADS total points: 4 ACR TI-RADS category: 4 4. Location: Posterior to left midpole. Size: 0.9 x 0.5 x 0.6 cm, volume 0.14 mL. Previously: New since the previous study. Nodule characteristics: Composition: Solid (2). Echogenicity: Hypoechoic (2). Shape: Not taller than wide (0). Margins: Smooth (0). Echogenic Foci: None (0). ACR TI-RADS total points: 4 ACR TI-RADS category: 4 NODES: No lymphadenopathy is seen in the tissue surrounding the thyroid gland. US/US thyroid IMPRESSION: 1. A 1.5 cm TR 4 nodule along the posterior aspect of the right mid thyroid lobe could represent an exophytic nodule meeting criteria for biopsy for which fine-needle aspiration would be recommended. Alternatively, this could represent an extrathyroidal nodule, possibly a parathyroid/parathyroid adenoma. Correlation with clinical exam recommended to determine further management including possible biopsy. 2. A 0.9 cm TR 4 nodule identified along the posterior aspect of the left thyroid lobe could represent an extrathyroidal nodule, possibly a parathyroid/parathyroid adenoma. Correlation with clinical exam recommended to determine further management including possible biopsy Laboratory Tests 07/07/20 07/07/20 07/07/20 07:40 07:40 07:40 TSH 1.58 Free T4 0.87 Free Estradiol 5.16 Total Estradiol 220 Estradiol Ultra LC MSMS 220 FSH 3.3 Luteinizing Hormon e 5.6 Prolactin 14.1 Total Testosterone 20 Fr Testosterone Di bernadette 2.7 Sex Hormone Bind G lob 30 Androstenedione 94 DHEA Sulfate 140 Beta HCG, Quant < 2 Cortisol ACTH 10 17-Hydroxyprogeste alicia 68 07/07/20 07:40 TSH Free T4 Free Estradiol Total Estradiol Estradiol Ultra LC MSMS FSH Luteinizing Hormon e Prolactin Total Testosterone Fr Testosterone Di bernadette Sex Hormone Bind G lob Androstenedione DHEA Sulfate Beta HCG, Quant Cortisol 11.6 ACTH 17-Hydroxyprogeste alicia No obstructive sx [facility] Medical History (Updated 12/17/22 @ 20:49 by MIRTA Penaloza) Brown's esophagus Anxiety Vitamin D deficiency Irregular menses Multinodular thyroid Surgical History Hiatal hernia History of back surgery History of laparoscopy Hx of biopsy Family History Father Diabetes mellitus HTN (hypertension) CVD (cardiovascular disease) Substance use disorder Mother Drug addict End stage liver disease Asthma Substance use disorder Brother Substance use disorder Sister No problems noted. Maternal Aunt Family history of thyroid problem Paternal Aunt Substance use disorder Paternal Uncle Substance use disorder Social History Household Members: Significant Other Housing: House Alcohol intake: current Alcohol intake frequency: holidays/special occasions only Patient Tobacco Use Status: Former Tobacco user Quit Date: quit 9 years Cigarette Packs Per Day: 1 Years Smoked: 30 e-Cigarette/Vaping Use: Never Used Second Hand Smoke Exposure: No service: No Current occupational status: employed Current occupation: [employer] Current occupational exposures/hazards: No Cognitive needs: No Hearing needs: No Vision needs: No Female Reproductive History Menstrual Age of Menarche: 14 Physical Exam Const Other: Thyroid gland is normal size weighs about 15 g. There are no thyroid nodules palpated Assessment & Plan Assessment & Plan (1) Thyroid nodule: Code(s): E04.1 - Nontoxic single thyroid nodule Plan: This is a 47-year-old white female with a history of multinodular goiter she underwent FNA biopsy 12/2021 of her RLP 1.8 cm thyroid nodule, with cytology revealing atypia of undetermined significance. Affirma was benign. She appears to be clinically euthyroid . Recent ultrasound shows A 1.5 cm TR 4 nodule along the posterior aspect of the right mid thyroid lobe could represent an exophytic nodule meeting criteria for biopsy for which fine-needle aspiration would be recommended Will talk to patient about possibly sending for right posterior thyroid nodule biopsy. After long discussion with patient, we decided to refer her to [facility] to Dr. Seymour for further evaluation of the right posterior nodule and possible biopsy (2) Obese: Code(s): E66.9 - Obesity, unspecified Plan: Had extensive discussion with the patient about insulin resistance and polycystic ovarian syndrome. We will rule out [place] syndrome although doubt. Will get 24 hour urine for free cortisol. 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 Could consider use of G LP 1 or G LP 1/GI P if insurance would improve in future Orders: Orders Cortisol, Free 24Hr Urine Today E66.9 - Obesity, unspecified Creatinine, 24 Hr Group Today E66.9 - Obesity, unspecified Referrals Endocrinology Referral E04.1 - Nontoxic single thyroid nodule Nutrition/Dietitian Referral E66.9 - Obesity, unspecified Coding Level of Care Code Est Pt Level 3 (86700) Diagnoses Thyroid nodule E04.1 Obese E66.9
[2023-04-25 14:10] VITALS: BP 108/78; PULSE 87; BMI 40.9
== END 2023-04-25 14:55 | disposition home or self-care (01) ==
PROVIDERS: PCP Nurse Practitioner Family; Visit Provider Internal Medicine Endocrinology, Diabetes & Metabolism
DX: E04.1 Nontoxic single thyroid nodule (principal); E66.9 Obesity, unspecified
CPT/HCPCS: 99213

== ENCOUNTER → 2023-04-25 14:08 | Outpatient (BNVA) | payer OTHER, SELFPAY | PROVIDERS: PCP Nurse Practitioner Family; Visit Provider Internal Medicine Endocrinology, Diabetes & Metabolism ==

== ENCOUNTER 2023-06-19 11:20 | Outpatient (AMB) | payer OTHER, SELFPAY ==
--- NOTE | 2023-06-19 11:28 | A.OFFVIS_ITS ---
Intake VS Expanded 06/19/23 11:29 06/19/23 11:44 Height 5 ft 10 in 5 ft 10 in Weight 291 lb 14.272 oz 292 lb BMI 41.9 41.9 Intake Visit Reasons: Obesity/CONFIRMED Allergies No Known Allergies [No Known Allergies*] Allergy (Verified 04/25/23 14:13) HPI Nutrition Presentation Details Pt presents for MNT for obesity. 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 Typical meal intake B: 5:30-6 AM bagel egg/cheese or scrambled eggs with cheese or fried egg,with2 toast, 16 oz coffee with sugar and water or dd ice coffee or strawberry dragon fruit, green tea L: skips D: rice/salazar chicken or pasta /chicken/salad snack: chips, physical activity_ sedentary for now, has gym membership lost 80 lbs in the past via exercise fruits: 0-2/wk dairy: 2/d (cheese mostly) vegetables: 2 serving evening protein: fish o-1/wk water: 32 oz/day KZB-Uwgfzuh-Ur.Jeor Equation Height 5 ft 10 in Weight 292 lb Resting Metabolic Rate 2042.18 Calculated Activity Level Sedentary Calories Needed to Maintain Weight 2450.62 Diagnosis Nutrition problem #1 excessive energy intake As related to (etiology) #1 diagnosis As evidenced by (sign/symptom) #1 knowledge deficit of diet Monitoring/Goals Nutrition problem monitoring level of knowledge/skill and weight Nutrition goal/outcome list 3 CHO foods and wt loss 5lbs in 2 months Learning/Education Readiness to learn good Stages of change preparation Educational materials provided Yes (meal planning) Most Recent Diabetes Results: Cholesterol 165 mg/dL (<200) 12/17/22 HDL Cholesterol 41 mg/dL (>40) 12/17/22 Triglycerides 96 mg/dL (<150) 12/17/22 Creatinine 0.85 mg/dL (0.5-1.4) 12/17/22 Blood Urea Nitrogen 11 mg/dL (9-16) 12/17/22 Sodium 142 mmol/L (135-145) 12/17/22 Potassium 4.6 mmol/L (3.3-5.1) 12/17/22 Chloride 106 mmol/L (96-108) 12/17/22 Carbon Dioxide 30 mmol/L (22-29) H 12/17/22 Calcium 10.4 mg/dL (8.4-10.2) H 12/24/22 AST 12 U/L (5-31) 12/17/22 ALT 13 U/L (0-31) 12/17/22 Total Protein 7.2 g/dL (6.5-8.0) 12/17/22 Albumin 4.1 g/dL (3.5-5.0) 12/17/22 [facility] Medical History (Updated 04/26/23 @ 15:25 by Heladio Castañeda, [facility]) Brown's esophagus Anxiety Vitamin D deficiency Irregular menses Multinodular thyroid Surgical History History of hysterectomy Hx of biopsy History of back surgery Hiatal hernia History of laparoscopy Family History Father Diabetes mellitus HTN (hypertension) CVD (cardiovascular disease) Substance use disorder Mother Drug addict End stage liver disease Asthma Substance use disorder Brother Substance use disorder Sister No problems noted. Maternal Aunt Family history of thyroid problem Paternal Aunt Substance use disorder Paternal Uncle Substance use disorder Social History Household Members: Significant Other Housing: House Alcohol intake: current Alcohol intake frequency: holidays/special occasions only Patient Tobacco Use Status: Former Tobacco user Quit Date: quit 9 years Cigarette Packs Per Day: 1 Years Smoked: 30 e-Cigarette/Vaping Use: Never Used Second Hand Smoke Exposure: No service: No Current occupational status: employed Current occupation: [employer] Current occupational exposures/hazards: No Cognitive needs: No Hearing needs: No Vision needs: No Female Reproductive History Menstrual Age of Menarche: 14 Assessment & Plan Assessment & Plan (1) Obesity, morbid, BMI 40.0-49.9: Code(s): E66.01 - Morbid (severe) obesity due to excess calories Plan: Wt: 134 Kg ( 06/2023 ) Est kcal needs as per MSJ: 2400 (40% carb, 30% protein/fat) Est fluid needs as per 25-30 ml/d: 4000 Est prot per day as per 1 g/kg bw: 134 Recommend fiber intake : 8-10 g per day and gradually increase to 25-28 g per day for women and 35-38 g for men or as tolerated Recommend sodium intake per day : less than 1500 mg less than 2000 mg Educated patient on: ( R = reviewed V = verbalizes understanding N/R = needs review N/A = not applicable * Food sources of carbohydrate, adequate serving sizes and its role in various health conditions: R * Differences between complex carbohydrates a simple carbohydrates, role of fiber in diet: N/R * Lean protein sources of foods: R * Differences between types of fats and role in diet (mono on saturated fat fatty acids, saturated fatty acids, trans fats): N/R * Food sources of sodium in salt and healthy modifications for heart health in kidney health: N/R * Vitamins and minerals: N/R * Healthy plate method concept: R * Physical activity: Benefits a precaution: N/R * mindful eating and strategies: R Patient Instructions: Include 2 fruits a day ( 1 as snack replacing empty calorie snacks and 1 replacing a slice of serving of starch (bread/pasta/riced) Have a meal replacement once a day practice mindful eating Coding Level of Care Code Nutr Indiv Intake (13879) Diagnoses Obesity, morbid, BMI 40.0-49.9 E66.01 Time Spent (min) 30
[2023-06-19 11:29] VITALS: BMI 41.9
[2023-06-19 11:44] VITALS: BMI 41.9
== END 2023-06-19 12:15 | disposition home or self-care (01) ==
PROVIDERS: PCP Nurse Practitioner Family; Visit Provider Dietitian, Registered
DX: E66.01 Morbid (severe) obesity due to excess calories (principal)

== ENCOUNTER 2023-06-19 12:37 | Outpatient (REF) | payer OTHER, SELFPAY ==
--- NOTE | ~2023-06-19 | US_ITS ---
Ultrasound-guided thyroid nodule fine needle aspiration Indication: Right posterior midpole thyroid nodule Procedure: Informed consent was obtained from the patient prior to the procedure. During this process, the procedure and potential alternatives were explained, along with the intended outcome and benefits. The risks of the procedure, as well as the risks of not doing the procedure, were discussed. The patient was given the opportunity to ask questions regarding the procedure and appeared competent to make medical decisions. A signed consent form which documents this discussion was placed in the medical record. A timeout was performed in the room. The patient was placed in a supine position with the neck extended. The right side of the neck and chest was prepped and draped in routine sterile fashion. 1% lidocaine was used as anesthetic. Under real-time ultrasound guidance, a 25-gauge needle was placed into the nodule and aspiration was performed. A total of 3 aspirations were performed. The specimens were placed in CytoLyt and and the Affirma bottle. Postprocedure images showed no hematoma. A Band-Aid was applied to the access site. The patient tolerated the procedure well with no immediate complications. Permanent ultrasound images were archived to the procedure. US/US biopsy thyroid Impression: Right posterior midpole thyroid nodule fine-needle aspiration This procedure was performed by Florentino Hillman PA-C, and directly supervised by Dr. Shea
[2023-06-19] MEDS: Lidocaine HCl 1 % MPF 5 ML VIAL SUBCUT (13:56)
== END 2023-06-19 12:38 | disposition home or self-care (01) ==
LOC: HO.US 12:37
PROVIDERS: PCP Nurse Practitioner Family; Visit Provider Internal Medicine Endocrinology, Diabetes & Metabolism
DX: E04.2 Nontoxic multinodular goiter (principal); E66.01 Morbid (severe) obesity due to excess calories
CPT/HCPCS: 10005; 88173; 97802

== ENCOUNTER → 2023-06-19 12:39 | Outpatient (BNV) | payer OTHER, SELFPAY | PROVIDERS: PCP Nurse Practitioner Family; Visit Provider Physician Assistant Surgical | DX: E04.1 Nontoxic single thyroid nodule (principal) | CPT/HCPCS: 10005 ==

== ENCOUNTER 2023-07-04 09:52 | Outpatient (AMB) | payer OTHER, SELFPAY ==
--- NOTE | 2023-07-04 09:56 | MHC.OFFVIS ---
Intake Vital Signs 07/04/23 10:02 Height 5 ft 10 in Weight 288 lb 8 oz BMI 41.4 BP 114/72 Blood Pressure Location Lt brachial Position Sitting Pulse 71 Pulse Source Pulse Oximeter Pulse Oximetry (%) 97 Oxygen Delivery Method Room Air Intake Visit Reasons: INP: ISAC - CONF w/address Intake Note: Patient presents for ISAC. Wakes up during the night a lot Allergies No Known Allergies [No Known Allergies*] Allergy (Verified 07/04/23 10:01) HPI HPI Comments History of Present Illness Details 47 y/o female patient presents for new in-person visit for sleep consultation. Pt reports loud snoring, and non refreshing sleep. She has difficulty staying sleep, wakes up a lot in the night. Pt was also witnessed disrupted breathing and gasping. Pt reports family hx of sleep apnea. Sleep questionnaire: Have you ever been diagnosed with a sleep disorder? No. Have you ever had a sleep study in the past? No. Have you ever been treated for a sleep disorder? No. Do you take medications for a sleep disorder? No. Do you snore? Yes. Do you wake up gasping at night? Yes. Do you have episodes of apneas? No. If yes, are they witnessed? No. Do you have episodes of nocturnal chest pain or dyspnea? No. Do you have difficulty initiating sleep? No. Do you have difficulty maintaining sleep? Yes. Do you wake up tired? Yes, sometimes. Do you have headaches upon awakening? No. Do you wake up with dry mouth or throat? Yes, sometimes. Do you have GERD? Used to, had hernia surgery done. Do you have nocturia? Maybe twice at night. Do you have nocturnal leg cramps? Rarely. Do you have symptoms of restless legs? Yes. Do you act out your dreams? Yes, sometimes. Sleep hygiene questionnaire: What is your usual sleep routine? Usual bedtime is at 9:30-10 pm; Usual wake up time is at 5:15-5:45 am. Do you take naps? Yes, sometimes on weekends. Is your sleep environment cool, dark, and quiet? Yes. Do you exercise? No. Do you take caffeine or other stimulants? Coffee in the morning. Do you use electronics in bed? No. What is your work schedule? 8 am to 4:30 pm. Hypersomnolence questionnaire: Do you have daytime tiredness or fatigue? Yes, sometimes. Do you easily fall asleep when inactive? No. Have you ever had episodes of sudden weakness? No. Have you ever had episodes of sudden weakness associated with strong emotions? No. [facility] Medical History (Updated 07/05/23 @ 08:26 by Ace Butcher CNP) Brown's esophagus Anxiety Vitamin D deficiency Irregular menses Multinodular thyroid Surgical History History of hysterectomy Hx of biopsy History of back surgery Hiatal hernia History of laparoscopy Family History Father Diabetes mellitus HTN (hypertension) CVD (cardiovascular disease) Substance use disorder Mother Drug addict End stage liver disease Asthma Substance use disorder Brother Substance use disorder Sister No problems noted. Maternal Aunt Family history of thyroid problem Paternal Aunt Substance use disorder Paternal Uncle Substance use disorder Social History Household Members: Significant Other Housing: House Alcohol intake: current Alcohol intake frequency: holidays/special occasions only Patient Tobacco Use Status: Former Tobacco user Quit Date: quit 9 years Cigarette Packs Per Day: 1 Years Smoked: 30 e-Cigarette/Vaping Use: Never Used Second Hand Smoke Exposure: No service: No Current occupational status: employed Current occupation: [employer] Current occupational exposures/hazards: No Cognitive needs: No Hearing needs: No Vision needs: No Female Reproductive History Menstrual Age of Menarche: 14 Review of Systems Const All systems reviewed & are unremarkable except as noted in HPI and below Physical Exam Vital Signs: Last Vital Signs Pulse 71 07/04/23 10:02 BP 114/72 07/04/23 10:02 Pulse Ox 97 07/04/23 10:02 Oxygen Delivery Method Room Air 07/04/23 10:02 BMI result Body Mass Index 41.4 Const General: cooperative Nutritional Appearance: obese Orientation/consciousness: patient oriented x3 Neck Neck: Yes full ROM and Yes supple Resp Effort & Inspection: normal respiratory effort and able to speak in complete sentences Neuro General: patient oriented x3, gait normal and moves all extremities Cranial nerves: Yes CN's II-XII intact bilaterally Cognition (Neuro): normal cognition Gait exam (Neuro): Normal gait present Motor exam (neuro): 5/5 motor strength present throughout Psych Appearance: grossly normal Mental Status: mental status grossly normal Speech and movement: Normal speech and movement present Affect: normal affect Assessment & Plan Assessment & Plan (1) Sleep apnea: Code(s): G47.30 - Sleep apnea, unspecified (2) Loud snoring: Code(s): R06.83 - Snoring (3) Daytime sleepiness: Code(s): R40.0 - Somnolence (4) Obesity, morbid, BMI 40.0-49.9: Code(s): E66.01 - Morbid (severe) obesity due to excess calories Plan Pt is advised to undergo in lab sleep study to assess for sleep apnea. Will f/u with pt after study to discuss results and appropriate treatment options. Sleep hygiene education provided. Wt reduction advised. Pt to call with any worsening concerns or questions. Orders: Orders RT PSG in-lab sleep study 07/04/23 E66.01 - Morbid (severe) obesity due to excess calories, G47.10 - Hypersomnia, unspecified, G47.30 - Sleep apnea, unspecified Coding Level of Care Code New Pt Level 3 (22925) Diagnoses Sleep apnea G47.30 Loud snoring R06.83 Daytime sleepiness R40.0 Obesity, morbid, BMI 40.0-49.9 E66.01
[2023-07-04 10:02] VITALS: BP 114/72; PULSE 71; O2SAT 97; BMI 41.4
== END 2023-07-04 10:21 | disposition home or self-care (01) ==
PROVIDERS: PCP Nurse Practitioner Family; Visit Provider Nurse Practitioner Family
DX: G47.30 Sleep apnea, unspecified (principal); R06.83 Snoring; R40.0 Somnolence; E66.01 Morbid (severe) obesity due to excess calories
CPT/HCPCS: 99203

== ENCOUNTER → 2023-07-04 09:52 | Outpatient (BNVA) | payer OTHER, SELFPAY | PROVIDERS: PCP Nurse Practitioner Family; Visit Provider Nurse Practitioner Family ==

== ENCOUNTER 2023-07-11 16:14 | Outpatient (AMB) | payer OTHER, SELFPAY ==
[2023-07-11 16:15] VITALS: BP 108/74; PULSE 82; BMI 41.7
--- NOTE | 2023-07-11 16:15 | MHC.OFFVIS ---
Intake Vital Signs 07/11/23 16:15 Height 5 ft 10 in Weight 290 lb 9.108 oz BMI 41.7 BP 108/74 Blood Pressure Location Rt brachial Position Sitting Pulse 82 Pulse Source Pulse Oximeter Intake Visit Reasons: FNA results-confirmed Intake Note: Patient presents today for FNA results. Medical Lab Technologist Required: No Accompanied by: Self / Same As Patient Allergies No Known Allergies [No Known Allergies*] Allergy (Verified 07/11/23 16:16) HPI HPI Comments History of Present Illness Details 47 YO F with PMHx Hirsutism who is seen in consultation for multinodular thyroid and irregular menses at the request of PCP.. The patient last saw Dr. Green on 01/27/2022 1) Multinodular Thyroid: Was initially diagnosed with multinodular thyroid in 2020 with thyroid US revealing a heterogenous gland with multiple bilateral thyroid nodules. TSH has remained WNL. She underwent FNA biopsy 12/2021 of her RLP 1.8 cm thyroid nodule, with cytology revealing atypia of undetermined significance. Affirma was benign. She presents today to review these results. She does have a history of hypothyroidism in a maternal aunt. She also complains of a long history of irregular menses as well as hirsutism of the face. She had significant difficulty with conception in the past. She reportedly had a large cyst removed from her ovary and was told she has PCOS many years ago. Labs were all WNL. Thyroid US: 04/16/2020 Right Thyroid Lobe: 5 x 1.9 x 2.2 cm, volume 10.7 mL. Parenchyma: The gland echotexture is homogeneous. Thyroid vascularity is normal. Left Thyroid Lobe: 4.8 x 1.3 x 1.6 cm, volume 5.3 mL. Parenchyma: The gland echotexture is homogeneous. Thyroid vascularity is normal. Isthmus: 0.5 cm in maximum AP dimension. RIGHT THYROID LOBE: There are 3 nodules seen. 1. Location: Superior. Size: 0.5 x 0.4 x 0.6 cm. Nodule characteristics: Hypoechoic, smoothly marginated with no intranodular flow, simple cyst. 2. Location: Middle. Size: 0.3 x 0.2 x 0.3 cm. Nodule characteristics: Hypoechoic, smoothly marginated with no intranodular flow, likely simple cyst. 3. Location: Inferior. Size: 1.8 x 0.9 x 1.5 cm. Nodule characteristics: Isoechoic, smoothly marginated with intranodular flow, solid lesion. ISTHMUS: No nodules. LEFT THYROID LOBE: There is 1 nodule seen. 1. Location: Inferior. Size: 0.4 x 0.4 x 0.3 cm. Nodule characteristics: Hypoechoic, smoothly marginated with no intranodular flow, likely simple cyst. NODES: No lymphadenopathy is seen in the tissue surrounding the thyroid gland. Labs: FINDINGS: SIZE: Measurements of the thyroid lobes and nodules are given in sagittal, anteroposterior and transverse dimensions respectively. Right Thyroid Lobe: 4.7 x 2.0 x 1.9 cm, volume 9.3 mL. Previously 5.0 x 1.9 x 2.2 cm, volume 10.7 mL. Parenchyma: The gland echotexture is mildly heterogeneous. Thyroid vascularity is normal. Left Thyroid Lobe: 5.0 x 1.3 x 1.9 cm, volume 6.5 mL. Previously 4.8 x 1.3 x 1.6 cm, volume 5.3 mL. Parenchyma: The gland echotexture is mildly heterogeneous. Thyroid vascularity is normal. Isthmus: 0.4 cm in maximum AP dimension. Previously 0.6 cm. Estimated total number of nodules greater than or equal to 1 cm: 2. Financial Analysis Consultant nodules are described as follows: 1. Location: Right mid medial. Size: 0.5 x 0.3 x 0.7 cm, volume 0.06 mL. Previously: 0.5 x 0.4 x 0.6 cm, volume 0.06 mL. Nodule characteristics: Composition: Cystic(0). ACR TI-RADS total points: 0 ACR TI-RADS category: 1 Significant change in size (>/= 20% in 2 dimensions and minimal increase of 2 mm or 50% or greater increase in volume): No Change in features: No Change in ACR TI-RADS risk category: No 2. Location: Right inferior. Size: 1.3 x 1.0 x 1.3 cm, volume 0.87 mL. Previously: 1.8 x 0.9 x 1.5 cm, volume 1.27 mL. Nodule characteristics: Composition: Solid (2). Echogenicity: Isoechoic (1). Shape: Not taller than wide (0). Margins: Smooth (0). Echogenic Foci: None (0). ACR TI-RADS total points: 3 Previous: N/A ACR TI-RADS category: 3 Previous: 3 Significant change in size (>/= 20% in 2 dimensions and minimal increase of 2 mm or 50% or greater increase in volume): No Change in features: No Change in ACR TI-RADS risk category: No 3. Location: Posterior to right midpole. Size: 1.5 x 1.1 x 1.4 cm, volume 1.19 mL. Previously: New since the previous study. Nodule characteristics: Composition: Solid (2). Echogenicity: Hypoechoic (2). Shape: Not taller than wide (0). Margins: Smooth (0). Echogenic Foci: None (0). ACR TI-RADS total points: 4 ACR TI-RADS category: 4 4. Location: Posterior to left midpole. Size: 0.9 x 0.5 x 0.6 cm, volume 0.14 mL. Previously: New since the previous study. Nodule characteristics: Composition: Solid (2). Echogenicity: Hypoechoic (2). Shape: Not taller than wide (0). Margins: Smooth (0). Echogenic Foci: None (0). ACR TI-RADS total points: 4 ACR TI-RADS category: 4 NODES: No lymphadenopathy is seen in the tissue surrounding the thyroid gland. US/US thyroid IMPRESSION: 1. A 1.5 cm TR 4 nodule along the posterior aspect of the right mid thyroid lobe could represent an exophytic nodule meeting criteria for biopsy for which fine-needle aspiration would be recommended. Alternatively, this could represent an extrathyroidal nodule, possibly a parathyroid/parathyroid adenoma. Correlation with clinical exam recommended to determine further management including possible biopsy. 2. A 0.9 cm TR 4 nodule identified along the posterior aspect of the left thyroid lobe could represent an extrathyroidal nodule, possibly a parathyroid/parathyroid adenoma. Correlation with clinical exam recommended to determine further management including possible biopsy Laboratory Tests 07/07/20 07/07/20 07/07/20 07:40 07:40 07:40 TSH 1.58 Free T4 0.87 Free Estradiol 5.16 Total Estradiol 220 Estradiol Ultra LC MSMS 220 FSH 3.3 Luteinizing Hormon e 5.6 Prolactin 14.1 Total Testosterone 20 Fr Testosterone Di bernadette 2.7 Sex Hormone Bind G lob 30 Androstenedione 94 DHEA Sulfate 140 Beta HCG, Quant < 2 Cortisol ACTH 10 17-Hydroxyprogeste alicia 68 07/07/20 07:40 TSH Free T4 Free Estradiol Total Estradiol Estradiol Ultra LC MSMS FSH Luteinizing Hormon e Prolactin Total Testosterone Fr Testosterone Di bernadette Sex Hormone Bind G lob Androstenedione DHEA Sulfate Beta HCG, Quant Cortisol 11.6 ACTH 17-Hydroxyprogeste alicia No obstructive sx . Status post FNA of right posterior nodule which showed epithelial cells but no colloid with possible suggestion of parathyroid adenoma [facility] [place] Medical History (Updated 07/05/23 @ 08:26 by Ace Butcher CNP) Brown's esophagus Anxiety Vitamin D deficiency Irregular menses Multinodular thyroid Surgical History History of hysterectomy Hx of biopsy History of back surgery Hiatal hernia History of laparoscopy Family History Father Diabetes mellitus HTN (hypertension) CVD (cardiovascular disease) Substance use disorder Mother Drug addict End stage liver disease Asthma Substance use disorder Brother Substance use disorder Sister No problems noted. Maternal Aunt Family history of thyroid problem Paternal Aunt Substance use disorder Paternal Uncle Substance use disorder Social History Household Members: Significant Other Housing: House Alcohol intake: current Alcohol intake frequency: holidays/special occasions only Patient Tobacco Use Status: Former Tobacco user Quit Date: quit 9 years Cigarette Packs Per Day: 1 Years Smoked: 30 e-Cigarette/Vaping Use: Never Used Second Hand Smoke Exposure: No service: No Current occupational status: employed Current occupation: [employer] Current occupational exposures/hazards: No Cognitive needs: No Hearing needs: No Vision needs: No Female Reproductive History Menstrual Age of Menarche: 14 Physical Exam Vital Signs: Last Vital Signs Pulse 82 07/11/23 16:15 BP 108/74 07/11/23 16:15 BMI result Body Mass Index 41.7 Const Other: Thyroid gland is normal size weighs about 15 g. There are no thyroid nodules palpated Assessment & Plan Assessment & Plan (1) Thyroid nodule: Code(s): E04.1 - Nontoxic single thyroid nodule Plan: This is a 47-year-old white female with a history of multinodular goiter she underwent FNA biopsy 12/2021 of her RLP 1.8 cm thyroid nodule, with cytology revealing atypia of undetermined significance. Affirma was benign. She appears to be clinically euthyroid . Recent ultrasound shows A 1.5 cm TR 4 nodule along the posterior aspect of the right mid thyroid lobe status post FNA with questionable benign nodule versus parathyroid growth Will talk to patient about possible options including observation versus surgical resection. We will also await Affirma for PTH assessment. After a careful discussion regarding different options, patient is opting for surgical intervention.. We will refer her to Dr. saleh at [facility] (2) Obese: Code(s): E66.9 - Obesity, unspecified Plan: Had extensive discussion with the patient about insulin resistance and polycystic ovarian syndrome. We will rule out Granville syndrome although doubt. Will get 24 hour urine for free cortisol. Assuming normal, we will also send to front office developer. Could consider use of G LP 1 or G LP 1/GI P if insurance would improve in future Orders: Referrals General Surgery Referral E04.1 - Nontoxic single thyroid nodule Coding Level of Care Code Est Pt Level 3 (47458) Diagnoses Thyroid nodule E04.1 Obese E66.9
== END 2023-07-11 16:53 | disposition home or self-care (01) ==
LOC: HO.ENCR 16:14
PROVIDERS: PCP Nurse Practitioner Family; Visit Provider Internal Medicine Endocrinology, Diabetes & Metabolism
DX: E04.1 Nontoxic single thyroid nodule (principal); E66.9 Obesity, unspecified
CPT/HCPCS: 99213

== ENCOUNTER → 2023-07-11 16:14 | Outpatient (BNVA) | payer OTHER, SELFPAY | PROVIDERS: PCP Nurse Practitioner Family; Visit Provider Internal Medicine Endocrinology, Diabetes & Metabolism ==

== ENCOUNTER 2023-11-20 15:49 | Outpatient (AMB) | payer OTHER, SELFPAY ==
[2023-11-20 15:54] VITALS: BP 122/80; PULSE 69; O2SAT 98; BMI 40.2
--- NOTE | 2023-11-20 15:54 | MHC.PC.OV ---
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 Accompanied by: Self / Same As Patient Allergies No Known Allergies [No Known Allergies*] Allergy (Verified 11/20/23 15:55) Medication List - Last Reconciled 11/20/23 by MIRTA Penaloza bisacodyl (Dulcolax (bisacodyl)) 10 mg (2 x 5 mg) PO ONCE 1 day bupropion HCl SR (Wellbutrin SR) 100 mg PO DAILY 90 days cholecalciferol (vitamin D3) 50 mcg PO DAILY 30 days docusate sodium 100 mg PO BEDTIME ibuprofen 800 mg PO DAILY PRN 90 days pantoprazole 20 mg PO DAILY polyethylene glycol 3350 (Miralax) 238 grams PO ONCE sennosides (Senokot) 8.6 mg PO DAILY Tobacco use date assessed: 11/20/23 Dental Screening Dental Screen Date: 11/20/23 Did you have a dental visit in the last 12 months?: Yes Did you have a dental problem in the last 6 months where you did not have access to dental care?: No Was dental information given to patient?: Patient has dentist HPI Annual PE HPI Details Pt is here for a PE. Will order labs. Colon screen is up to date. Mammo is up to date. 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 Pt is following up with endo (enlarged/nodular), has an appointment at [facility] next month. Pt has a family hx of brain cancer (grandmother). She reports extensive memory loss. Will order MRI. [facility] Medical History Brown's esophagus Anxiety Vitamin D deficiency Irregular menses Multinodular thyroid Surgical History History of hysterectomy Hx of biopsy History of back surgery Hiatal hernia History of laparoscopy Family History Father Diabetes mellitus HTN (hypertension) CVD (cardiovascular disease) Substance use disorder Mother Drug addict End stage liver disease Asthma Substance use disorder Brother Substance use disorder Sister No problems noted. Maternal Aunt Family history of thyroid problem Paternal Aunt Substance use disorder Paternal Uncle Substance use disorder Social History Household Members: Significant Other Housing: House Alcohol intake: current Alcohol intake frequency: holidays/special occasions only Patient Tobacco Use Status: Former Tobacco user Cigarette Packs Per Day: 1 Years Smoked: 30 e-Cigarette/Vaping Use: Never Used Second Hand Smoke Exposure: No service: No Current occupational status: employed Current occupation: [employer] Current occupational exposures/hazards: No Cognitive needs: No Hearing needs: No Vision needs: No Female Reproductive History Menstrual Age of Menarche: 14 Questionnaire PHQ-9 Over the last 2 weeks, how often have you been bothered by any of the following problems? 1. Little interest or pleasure in doing things: not at all 2. Feeling down, depressed, or hopeless: several days 3. Trouble falling or staying asleep, or sleeping too much: not at all 4. Feeling tired or having little energy: not at all 5. Poor appetite or overeating: not at all 6. Feeling bad about yourself - or that you are a failure or have let yourself or your family down: not at all 7. Trouble concentrating on things, such as reading the newspaper or watching television: not at all 8. Moving or speaking so slowly that other people could have noticed. Or the opposite - being so fidgety or restless that you have been moving around a lot more than usual: not at all 9. Thoughts that you would be better off or of hurting yourself in some way: not at all Total score: 1 Depression Screening Interpretation: Negative Depression Screening Done: Yes 99298 - PHQ-9 Billing: Yes Source: Developed by Drs. Brooks Stauffer, Anushka Gutierrez, Todd Bhatti and colleagues, with an educational wang from [email or web address]. Thrive Questionnaire Date Thrive assessed: 11/20/23 I am a: Patient What is your living situation today?: I have a steady place to live Within the past 12 months, did the food you bought not last and you didn't have the money to get more?: Never true Within the past 12 months, did you worry whether your food would run out before you got money to buy more?: Never true Do you have trouble paying for medicines?: No Do you have trouble getting transportation to medical appointments?: No Do you have trouble paying your heating and electricity bill?: No Do you have trouble taking care of your child, family member or friend?: No Do you have trouble with day-to-day activities such as bathing, preparing meals, shopping, managing finances, etc.?: No Are you currently unemployed and looking for a job?: No Are you interested in more education?: No Please select the resources that you would like help with: None Currently or been in a relationship where the following occur: No concerns reported THRIVE Score: 0 AUDIT C Alcohol Use Questionnaire (AUDIT-C) 1. How often do you have a drink containing alcohol?: Never 2. How many drinks containing alcohol do you have on a typical day when you are drinking?: 1 or 2 3. How often do you have six or more drinks on one occasion?: Never Total Score: 0 Score Reviewed/Action Taken: Yes MAHI-7 AMB Questionnaire MAHI-7 Date MAHI - 7 assessed: 11/20/23 Feeling nervous, anxious, or on edge: 3 = Nearly every day Not being able to stop or control worryin = Nearly every day Worrying too much about different things: 3 = Nearly every day Trouble relaxin = More than half the days Being so restless that it is hard to sit still: 0 = Not at all Becoming easily annoyed or irritable: 1 = Several days Feeling afraid as if something awful might happen: 0 = Not at all Total MAHI-7 score (0-4 normal; 5-9 mild; 10-14 moderate; 15-21 severe): 12 Source: Developed by Drs. Brooks Stauffer, Anushka Gutierrez, Todd Bhatti and colleagues, with an educational wang from [email or web address]. MAHI-7 Assessment Billing MAHI-7 Assessment Tool: MAHI-7 Assessment 19560 (denies any SI or HI) Review of Systems Const Denies chills and Denies fever(s) Eyes Denies blurry vision ENT Denies vertigo, Denies dizziness and Denies sore throat Card Denies chest pain at rest, Denies chest pain with activity, Denies diaphoresis, Denies dyspnea and Denies dyspnea on exertion Resp Denies cough, Denies dyspnea, Denies dyspnea on exertion and Denies wheezing GI Denies abdominal pain, Denies melena, Denies hematochezia, Denies constipation, Denies diarrhea and Denies loose stools Denies hematuria Musc Denies numbness and Denies tingling Skin/Breast Denies lesions Neuro Denies vertigo, Denies dizziness, Denies numbness and Denies tingling Psych Denies anxiety, Denies depression, Denies homicidal ideation, Denies suicidal ideation and Denies other (substance abuse) Aller/Immun Denies wheezing Physical exam (Primary Care) Vital Signs: Last Vital Signs Pulse 69 11/20/23 15:54 BP 122/80 11/20/23 15:54 Pulse Ox 98 11/20/23 15:54 Oxygen Delivery Method Room Air 11/20/23 15:54 BMI result Body Mass Index 40.2 Tobacco/Smoking Status: Tobacco use Status Tobacco use date assessed 11/20/23 11/20/23 15:56 Patient Tobacco Use Status Former Tobacco user 11/20/23 15:56 e-Cigarette/Vaping Use Never Used 11/20/23 15:56 PHQ-9: PHQ-9 Score PHQ-9: Total score 1 11/20/23 16:26 Depression Screening Interpretation: Negative Thrive Assessment: Date of Thrive Assessment Date Thrive assessed 11/20/23 11/20/23 15:56 Currently or been in a relationship where the following occur: No concerns reported Const General: cooperative Nutritional Appearance: obese Orientation/consciousness: patient oriented x3 HENMT Head: Yes normal to inspection, Yes normocephalic and Yes atraumatic Ears: TM's normal bilaterally Eyes General: appearance normal, both eyes and all related structures Alignment and Position: alignment normal and position normal Neck Other: right thyroid nodular and enlarged Neck: Yes normal visual inspection and Yes no lymphadenopathy Resp Effort & Inspection: normal respiratory effort Auscultation: clear to auscultation bilaterally Cardio Rate: regular rate Rhythm: regular rhythm Heart sounds: S1 normal heart sound present, S2 normal heart sound present and no murmurs GI Palpation (GI): Soft to palpation and nontender Auscultation: normal bowel sounds Skin Rashes: no rashes Neuro General: patient oriented x3, moves all extremities, no focal motor deficits and deep tendon reflexes 2+ bilaterally Romberg Test: Negative Psych Appearance: grossly normal Mental Status: mental status grossly normal Speech and movement: Normal speech and movement present Affect: normal affect Attitude: cooperative Thought process: Normal thought process present Thought content: Normal thought content present Insight: Good insight present (Psych) Judgement: Good judgement present (Psych) Assessment and Plan Assessment & Plan (1) Physical exam: Code(s): Z00.00 - Encounter for general adult medical examination without abnormal findings Plan: Labs ordered (2) Memory loss: Code(s): R41.3 - Other amnesia Plan: MRI ordered (3) Multinodular thyroid: Code(s): E04.2 - Nontoxic multinodular goiter Plan: following up with endo (4) Enlarged thyroid: Code(s): E04.9 - Nontoxic goiter, unspecified Plan The patient agreed to the use of a medical center representative for this encounter. Scribed for ANTWAN Madden-BC by Maria Alejandra Carson medical center representative, on 11/20/2023 at 16:25 EST. Orders: Orders TSH reflex Free T4 Today Z00.00 - Encounter for general adult medical examination without abnormal findings Lipid Panel Today Z00.00 - Encounter for general adult medical examination without abnormal findings Complete Blood Count Auto Diff Today Z00.00 - Encounter for general adult medical examination without abnormal findings Comprehensive [place]. Panel Fast Today Z00.00 - Encounter for general adult medical examination without abnormal findings UA CC w/rflx Micro + Cult Today Z00.00 - Encounter for general adult medical examination without abnormal findings MR head/brain wo con Today R41.3 - Other amnesia Coding Level of Care Code Est Pt Prev Care 40-64y(31758) Diagnoses Physical exam Z00.00 Memory loss R41.3 Multinodular thyroid E04.2 Enlarged thyroid E04.9 Additional Codes MAHI-7 Assessment Billing - MAHI-7 Assessment Tool: MAHI-7 Assessment 47610 ([id number])
== END 2023-11-20 16:43 | disposition home or self-care (01) ==
PROVIDERS: PCP Nurse Practitioner Family; Visit Provider Nurse Practitioner Family
DX: Z00.00 Encounter for general adult medical examination without abnormal findings (principal); R41.3 Other amnesia; E04.2 Nontoxic multinodular goiter; E04.9 Nontoxic goiter, unspecified
CPT/HCPCS: 99396

== ENCOUNTER 2023-11-29 07:03 | Outpatient (REF) | payer OTHER, SELFPAY ==
[2023-11-29 07:25] LABS: MANUAL DIFF FLAG NO
[2023-11-29 07:45] LABS: Basophils Percent Auto 0.4 % (0-2); Eosinophils Absolute Auto 0.1 X10*3/uL (0.0-0.4); Eosinophils Percent Auto 1.2 % (0-4); Hematocrit 43.3 % (37.0-47.0); Hemoglobin 13.9 g/dl (12.0-16.0); Imm Gran Abs Auto 0.02 X10*3/uL (0.00-0.03); Imm Gran Pct Auto 0.2 % (0.0-0.4); Lymphocytes Absolute Auto 2.1 X10*3/uL (1.2-4.9); Lymphocytes Percent Auto 22.4 % (20-40); Mean Corpuscular HGB Conc 32.1 g/dl (31.0-35.0); Mean Corpuscular Hemoglobin 27.1 pg (27.0-33.0); Mean Corpuscular Volume 84.4 fL (80.0-98.0); Mean Platelet Volume 8.4 fL (9.4-12.3); Monocytes Absolute Auto 0.6 X10*3/uL (0.1-1.2); Monocytes Percent Auto 6.3 % (2-11); Neutrophils Absolute Auto 6.4 x10*3/uL (2.0-8.3); Neutrophils Percent Auto 69.5 % (45-73); Platelet Count 365 X10*3/uL (160-400); Red Blood Count 5.13 X10*6/uL (4.20-5.50); White Blood Count 9.3 X10*3/uL (4.8-10.8)
[2023-11-29 08:21] LABS: Alanine Aminotransferase 17 U/L (0-31); Alkaline Phosphatase 91 U/L (39-117); Anion Gap 10 (12-20); Aspartate Amino Transferase 10 U/L (5-31); Bilirubin Total 0.4 mg/dL (0.0-1.0); Blood Urea Nitrogen 11 mg/dL (9-16); Calcium 9.5 mg/dL (8.4-10.2); Carbon Dioxide 29 mmol/L (22-29); Chloride 107 mmol/L (96-108); Cholesterol 135 mg/dL (<200); Estimated Glomerular Filt Rate > 60; Glucose Fasting 98 mg/dL (60-99); HDL Cholesterol 43 mg/dL (>40); LDL Cholesterol Calculated 79 mg/dL (<100); Potassium 4.9 mmol/L (3.3-5.1); Sodium 141 mmol/L (135-145); Total Protein 6.9 g/dL (6.5-8.0); Triglycerides 67 mg/dL (<150)
[2023-11-29 08:40] LABS: TSH reflex Free T4 1.08 uIU/mL (0.32-4.0)
[2023-11-29 09:38] LABS: Appearance Urine Clear; Color Urine Yellow; Glucose Urine UA Negative (Negative); Leukocyte Esterase Urine Negative (Negative); Nitrite Urine Negative (Negative); PH 7.5 (5.0-9.0); Urine Blood Negative (Negative); Urine Ketones Negative (Negative); Urine Protein Negative (Neg-Trace)
== END 2023-11-29 07:04 | disposition home or self-care (01) ==
LOC: HO.LAB 07:03
PROVIDERS: PCP Nurse Practitioner Family; Visit Provider Nurse Practitioner Family
DX: Z00.00 Encounter for general adult medical examination without abnormal findings (principal); Z13.6 Encounter for screening for cardiovascular disorders
CPT/HCPCS: 36415; 80053; 80061; 81003; 84443; 85025

== ENCOUNTER 2023-12-24 07:09 | Outpatient (REF) | payer OTHER, SELFPAY ==
--- NOTE | ~2023-12-24 | MR_ITS ---
EXAMINATION: MR BRAIN WITHOUT CONTRAST CLINICAL INFORMATION: Amnesia. COMPARISON: CT scan of the head 12/15/2015. TECHNIQUE: MRI of the brain was obtained using routine sequences without contrast. FINDINGS: There is no acute territorial infarct. No pathological magnetic susceptibility artifact. Intracranial vascular flow voids are maintained. There is no intracranial mass effect or midline shift. No abnormal extra-axial collection. Lateral and third ventricles are normal. No hydrocephalus. Midline structures including the cervicomedullary junction are normal. No acute bone marrow signal changes. There is no mastoid or middle ear effusion. A retention cyst is visualized within the alveolar recess of the left maxillary sinus and there is trivial mucosal thickening within the ethmoid air cells. Globes and orbits are symmetric. MR/MR head/brain wo con IMPRESSION: Normal brain MRI. Electronically signed by: Brooks Nunez MD 01/03/2024 05:01 PM EDT
== END 2023-12-24 07:10 | disposition home or self-care (01) ==
LOC: HO.MRI 07:09
PROVIDERS: PCP Nurse Practitioner Family; Visit Provider Nurse Practitioner Family
DX: R41.3 Other amnesia (principal)
CPT/HCPCS: 70551

== ENCOUNTER 2024-07-12 15:27 | Outpatient (AMB) | payer OTHER, SELFPAY ==
--- NOTE | 2024-07-12 15:36 | MHC.OFFVIS ---
Vital Signs 07/12/24 15:37 Height 5 ft 10 in Weight 284 lb 6.341 oz BMI 40.8 BP 134/66 Blood Pressure Location Rt brachial Position Sitting Pulse 72 Pulse Source Pulse Oximeter Pulse Oximetry (%) 96 Oxygen Delivery Method Room Air Intake Visit Reasons: constipation, blood in stool, barretts eso. Intake Note: ESTABLISHED PATIENT for re-est care. DOROTHEA 2021 w/ Betty. Constipation w/ hematochezia/melena + hx of Brown's. Chief Complaint; C/O chronic fecal abn. Pt states that stools remain well formed but she is having infrequency of BMs. Pt also reports hematochezia, hx of anal fissures and hemorrhoids. Sx most severe x2 mos ago and lasted for ~ 4 weeks. Over the last 3 weeks, pt states a decrease in severity of sx. Pt also due for EGD FUV for Brown's mgmt. 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 However she does reports to be constipated no BMs for 2-3 days. Occasional acid reflux. History of Brown's and hiatal hernia. Will send patient for upper endoscopy. Denies any issues with anesthesia in the past.? Denies any history of sleep apnea.? No history infectious diseases in the past or present.? Not on any anticoagulation therapy.? No family or personal history of colon cancer or polyps.? Patient denies melena, hematochezia, unintentional weight loss or ribbon like stools.? Discussed at length the pre-procedure,? prep, diet & medications as well as what to expect prior, during and after the procedure.?? Stressed the importance of good bowel prep. ?Recommended the use of Vaseline or Calmoseptine OTC & baby wipes with bowel movements to promote comfort.? ?Patient verbalizes understanding and agrees to plan of care.? She was given the opportunity to ask questions and all questions answered.? We will see her after the procedure.? History of repair of hiatal hernia Patient had a history of hiatal hernia repair in 2004. Symptoms of acid reflux currently are suppressed, however she reports that occasionally she will have acid reflux. Patient denies epigastric discomfort. Patient was told that she had Brown's esophagus. Will send her for upper endoscopy to further evaluate. Plan Medications New docusate sodium 100 mg PO BEDTIME 90 caps 3RF K59.00 sennosides (Senokot) 8.6 mg PO DAILY 90 tabs 3RF K59.04 bisacodyl (Dulcolax (bisacodyl)) take 2 tabs at noon the day before your colonoscopy 10 mg (2 x 5 mg) PO ONCE 1 day 2 tabs 0RF Z12.11 polyethylene glycol 3350 (Miralax) As directed by gastroenterology department at [facility] 238 grams PO ONCE 238 grams 0RF Z12.11 ENDOSCOPY AND COLONOSCOPY 09/01/2022 Upper endoscopy Findings: Larynx:normal Esophagus: GE junction at 36 cm, diaphragm hiatus at 36 cm, tongues of salmon pink tissue with islands of normal esophgeal tissue C0M6, biopsies and brushings taken for Barretts. No focal nodularity noted. Stomach: Normal mucosa. Prior fundoplication noted retroflexed examination of the cardia. Duodenum: Normal bulb and descending duodenum, Intervention: Biopsies as noted above and brushings Colonoscopy Findings: Terminal Ileum-normal, bx taken Random colon bx taken of colon Cecum:normal Ascending Colon: normal Transverse Colon -normal Descending Colon:normal Sigmoid Colon: 10 mm sessile polyp removed with cold snare Rectum: Retroflexion with small internal hemorrhoids, grade I Anorectum - normal Colon preparation: [place] Bowel Preparation Scale Right colon; 2 Transverse colon: 2 Left colon; 2 (0 = Unprepared colon segment with mucosa not seen due to solid stool that cannot be cleared. 1 = Portion of mucosa of the colon segment seen, but other areas of the colon segment not well seen due to staining, residual stool and/or opaque liquid. 2 = Minor amount of residual staining, small fragments of stool and/or opaque liquid, but mucosa of colon segment seen well. 3 = Entire mucosa of colon segment seen well with no residual staining, small fragments of stool or opaque liquid) Impression and Post Procedure Diagnosis: Endoscopy Findings: barretts esophagus Colonoscopy Findings: polyp internal hemorrhoids Plan: Await Pathology results Repeat Colonoscopy in 5 years due to polyp or earlier if clinically indicated High fiber diet leaflet avoid straining at stool, epsom salts and sitz bath, anusol supps or cream repeat EGD in 6 months or earlier if dysplasia noted for bx per [place] protocol --will need to be on PPI PATHOLOGY RESULTS Diagnosis A. Esophagus, distal, biopsy: Squamocolumnar mucosa with mild chronic inflammation and focal intestinal metaplasia consistent with Brown's mucosa; negative for dysplasia. B. Terminal ileum, biopsy: Ileal mucosa with no specific change. C. Colon, random, biopsy: Colonic mucosa with no specific change. D. Colon, sigmoid, polyp: Tubular adenoma; negative for high-grade dysplasia and carcinoma TODAY'S VISIT: Patient is here today for requested visit. Last seen in January of 2022 and patient was sent for colonoscopy and upper endoscopy which was performed in August of 2022. Patient has never followed up with us afterwards. Diagnosed with Brown's without dysplasia. Patient is not taking any PPI. Patient reports that since her hiatal hernia surgery in 2004 she has not had any acid reflux. Patient and I had a long discussion about Brown's and the reason why she will need to stay for PPI probably for him rest of her life. Patient reports frequent bowel movements, small amounts. Does not feel like she empties. No diarrhea or mucus. Frequent blood in her stool. History of fissures in the past. Patient reports that she was taking stool softener and senna without any results. One tubular adenoma was found without high-grade dysplasia or carcinoma. Patient denies any other GI concerning symptoms. [facility] Medical History (Updated 07/12/24 @ 19:50 by Radha [facility]) Brown's esophagus Anxiety Vitamin D deficiency Irregular menses Multinodular thyroid Surgical History History of hysterectomy Hx of biopsy History of back surgery Hiatal hernia History of laparoscopy Family History Father Diabetes mellitus HTN (hypertension) CVD (cardiovascular disease) Substance use disorder Mother Drug addict End stage liver disease Asthma Substance use disorder Brother Substance use disorder Sister No problems noted. Maternal Aunt Family history of thyroid problem Paternal Aunt Substance use disorder Paternal Uncle Substance use disorder Social History Household Members: Significant Other Housing: House Alcohol intake: current Alcohol intake frequency: holidays/special occasions only Patient Tobacco Use Status: Former Tobacco user Cigarette Packs Per Day: 1 Years Smoked: 30 e-Cigarette/Vaping Use: Never Used Second Hand Smoke Exposure: No service: No Current occupational status: employed Current occupation: [employer] Current occupational exposures/hazards: No Cognitive needs: No Hearing needs: No Vision needs: No Female Reproductive History Menstrual Age of Menarche: 14 Review of Systems Const Denies weight gain and Denies weight loss ENT Reports no additional complaints, Denies dysphagia and Denies odynophagia Card Reports no additional complaints Resp Reports no additional complaints GI Denies abdominal pain, Denies belching, Denies melena, Reports bloating, Denies change in bowel habits, Reports constipation, Denies dysphagia, Denies excessive flatus, Denies dyspepsia, Reports heartburn, Denies diarrhea, Denies loose stools, Denies nausea, Denies odynophagia and Denies vomiting Musc Reports no additional complaints Neuro Reports no additional complaints Psych Reports no additional complaints Endo Reports no additional complaints Physical Exam Vital Signs: Last Vital Signs Pulse 72 07/12/24 15:37 BP 134/66 07/12/24 15:37 Pulse Ox 96 07/12/24 15:37 Oxygen Delivery Method Room Air 07/12/24 15:37 BMI result Body Mass Index 40.8 Const General: healthy appearing and no acute distress Nutritional Appearance: well nourished and obese Orientation/consciousness: patient oriented x3 Resp Effort & Inspection: normal respiratory effort, able to speak in complete sentences, no tracheal deviation and symmetric chest movement Auscultation: clear to auscultation bilaterally Cardio Rate: regular rate GI Inspection: Yes normal to inspection and No distended Palpation (GI): Soft to palpation, not firm, nontender and No hepatosplenomegaly present Auscultation: normal bowel sounds General: Yes no CVA tenderness Back/Spine/Pelvis Back: no CVA tenderness Skin General skin exam: elasticity normal, turgor normal and dry skin Neuro General: patient oriented x3 Psych Appearance: grossly normal Mental Status: mental status grossly normal Assessment & Plan Assessment & Plan (1) Brown's esophagus: Code(s): K22.70 - Brown's esophagus without dysplasia Category: Medical Qualifiers: Brown's esophagus type: without dysplasia Qualified Code(s): K22.70 - Brown's esophagus without dysplasia (2) Constipation: Code(s): K59.00 - Constipation, unspecified Qualifiers: Constipation type: slow transit constipation Qualified Code(s): K59.01 - Slow transit constipation (3) Bright red rectal bleeding: Code(s): K62.5 - Hemorrhage of anus and rectum Plan Message sent to surgical schedulers to book upper endoscopy and colonoscopy for patient. Long discussion with patient about the importance of taking PPI every day as she was diagnosed with Brown's without high-grade dysplasia confirmed by biopsy. Patient will start taking Dulcolax daily. What to expect before during and after procedure discussed with patient. Stressed the importance of good bowel prep and clear liquid diet before the procedure. Patient will call our office if she will continue to have symptoms or experience any additional GI concerning symptoms. She is agreeable to this plan and verbalizes understanding of instructions. She was given the opportunity to ask questions and all questions answered. Thank you for allowing me to participate in her care Medications: New polyethylene glycol 3350 (Miralax) As directed by gastroenterology department at [facility] 238 grams PO ONCE 238 grams 0RF Z12.11 - Encounter for screening for malignant neoplasm of colon bisacodyl (Dulcolax (bisacodyl)) 10 mg (2 x 5 mg) PO BEDTIME 180 tabs 4RF pantoprazole take one tablet half an hour before breakfast 40 mg PO DAILY 90 tabs 2RF K21.9 - Gastro-esophageal reflux disease without esophagitis Discontinued docusate sodium Discontinued Reason: Doctor's Order 100 mg PO BEDTIME 90 caps 3RF K59.00 - Constipation, unspecified sennosides (Senokot) Discontinued Reason: Doctor's Order 8.6 mg PO DAILY 90 tabs 3RF K59.04 - Chronic idiopathic constipation Coding Level of Care Code Est Pt Level 4 (67124) Complex EM visit Add On G2211 Diagnoses Brown's esophagus without dysplasia K22.70 Brown's esophagus type: without dysplasia Slow transit constipation K59.01 Constipation type: slow transit constipation Bright red rectal bleeding K62.5 Time Spent (min) 40 Comment 25 minutes spent with patient and additional 15 minutes spent reviewing her records
[2024-07-12 15:37] VITALS: BP 134/66; PULSE 72; O2SAT 96; BMI 40.8
== END 2024-07-12 16:14 | disposition home or self-care (01) ==
LOC: HO.HGI 15:28
PROVIDERS: PCP Nurse Practitioner Family; Visit Provider Nurse Practitioner Family
DX: K22.70 Barrett's esophagus without dysplasia (principal); K59.01 Slow transit constipation; K62.5 Hemorrhage of anus and rectum
CPT/HCPCS: 99214

== ENCOUNTER → 2024-07-12 15:27 | Outpatient (BNVA) | payer OTHER, SELFPAY | PROVIDERS: PCP Nurse Practitioner Family; Visit Provider Nurse Practitioner Family ==

== ENCOUNTER 2024-09-19 12:51 | Outpatient (REF) | payer OTHER, SELFPAY | END 2024-09-19 12:52 | disposition home or self-care (01) | LOC: HO.MAMMO 12:51 | PROVIDERS: PCP Nurse Practitioner Family; Visit Provider Nurse Practitioner Family | DX: Z12.31 Encounter for screening mammogram for malignant neoplasm of breast (principal) | CPT/HCPCS: 77063; 77067 ==

== ENCOUNTER → 2024-09-19 13:15 | Outpatient (BNV) | payer OTHER, SELFPAY | PROVIDERS: PCP Nurse Practitioner Family; Visit Provider Internal Medicine | DX: Z12.31 Encounter for screening mammogram for malignant neoplasm of breast (principal) | CPT/HCPCS: 77063; 77067 ==

== ENCOUNTER 2024-10-15 07:30 | Day surgery (SDC) | payer OTHER, SELFPAY ==
[2024-10-10 13:48] VITALS: BMI 40.7
--- NOTE | 2024-10-14 08:30 | HO.ANESPROP2 ---
Documented by User: Cassandra Pino NP 10/14/24 08:31 HPI - Anesthesia Eval Consult details Narrative: 48yo F for Upper Endoscopy and Colonoscopy [facility] Active Problems Active Problems: All Active Problems Memory loss (Acute) Daytime sleepiness (Acute) Loud snoring (Acute) Sleep apnea (Acute) Serum calcium elevated (Acute) Physical exam (Acute) Screening for colon cancer (Acute) Abnormal uterine bleeding (Acute) Uterine myoma (Acute) Obesity, morbid, BMI 40.0-49.9 (Acute) Thickened endometrium (Acute) Abnormal bleeding in menstrual cycle (Acute) History of PCOS (Acute) Thyroid nodule (Acute) Skin lesion (Acute) Enlarged thyroid (Acute) Obese (Acute) Physical exam (Acute) Screening for cervical cancer (Acute) Brown's esophagus (Acute) Vitamin D deficiency (Acute) Irregular menses (Acute) Multinodular thyroid (Acute) Past Medical History Medical History PCOS (polycystic ovarian syndrome) Sleep apnea Brown's esophagus Anxiety Vitamin D deficiency Irregular menses Multinodular thyroid Family History Family History Father Diabetes mellitus HTN (hypertension) CVD (cardiovascular disease) Substance use disorder Mother Drug addict End stage liver disease Asthma Substance use disorder Brother Substance use disorder Sister No problems noted. Maternal Aunt Family history of thyroid problem Paternal Aunt Substance use disorder Paternal Uncle Substance use disorder Family history of problems with anesthesia: No Surgical History Surgical History History of esophagogastroduodenoscopy (EGD) H/O colonoscopy History of hysterectomy Hx of biopsy History of back surgery Hiatal hernia History of laparoscopy History of Problems with Anesthesia: No Social History Social History Household Members: Significant Other Housing: House Alcohol intake: current Alcohol intake frequency: does not drink Patient Tobacco Use Status: Former Tobacco user Cigarette Packs Per Day: 1 Years Smoked: 30 e-Cigarette/Vaping Use: Never Used Second Hand Smoke Exposure: No Have you been hit, kicked, punched, or otherwise hurt by someone within the past year? If so, by whom?: No Are you DNR?: No Advance Directives: No Advance Directives Information Provided: Yes service: No Current occupational status: employed Current occupation: [employer] Current occupational exposures/hazards: No Cognitive needs: No Hearing needs: No Vision needs: No Meds Allergies Allergy/AdvReac Type Severity Reaction Status Date / Time No Known Allergies (No Known Allergy Verified 07/12/24 15:36 Allergies*) Exam Height,Weight and Vital Signs: Height 5 ft 10 in Weight 128.82 kg Assessment and Plan Assessment Anesthesia Assessment: Chart Reviewed Final Anesthetic Review Family History of Problems with Anesthesia: No History of Problems with Anesthesia: No Documented by User: Ramya Cutler MD 10/15/24 08:32 PMFSH Past Medical History Medical History PCOS (polycystic ovarian syndrome) Sleep apnea Brown's esophagus Anxiety Vitamin D deficiency Irregular menses Multinodular thyroid Family History Family History Father Diabetes mellitus HTN (hypertension) CVD (cardiovascular disease) Substance use disorder Mother Drug addict End stage liver disease Asthma Substance use disorder Brother Substance use disorder Sister No problems noted. Maternal Aunt Family history of thyroid problem Paternal Aunt Substance use disorder Paternal Uncle Substance use disorder Surgical History Surgical History History of esophagogastroduodenoscopy (EGD) H/O colonoscopy History of hysterectomy Hx of biopsy History of back surgery Hiatal hernia History of laparoscopy Social History Social History Household Members: Significant Other Housing: House Alcohol intake: current Alcohol intake frequency: does not drink Patient Tobacco Use Status: Former Tobacco user Cigarette Packs Per Day: 1 Years Smoked: 30 e-Cigarette/Vaping Use: Never Used Second Hand Smoke Exposure: No Have you been hit, kicked, punched, or otherwise hurt by someone within the past year? If so, by whom?: No Are you DNR?: No Advance Directives: No Advance Directives Information Provided: Yes service: No Current occupational status: employed Current occupation: [employer] Current occupational exposures/hazards: No Cognitive needs: No Hearing needs: No Vision needs: No Meds Allergies Allergy/AdvReac Type Severity Reaction Status Date / Time No Known Allergies (No Known Allergy Verified 07/12/24 15:36 Allergies*) Exam Airway Mallampati Class: III TM Dist: >3cm Neck ROM: Full Heart: rrr Lungs: cta Assessment and Plan Assessment Anesthesia Assessment: Anesthesia Plan Discussed Final Anesthetic Review NPO: Yes ASA Class: III Final Preanesthetic Review: No Changes in Pt Med Stat, Meds/Allgs Chart Reviewed, Consent Obtained/Reviewed and Anes Risks/Benef Reviewed Patient Risk: Intermediate Procedure Risk: Low Anesthetic Plan Anesthetic Plan: MAC: Disposition: Standard PACU
[2024-10-15 07:34] VITALS: BP 155/97; PULSE 82; RESP 18; TEMP 35.9; O2SAT 95; BMI 39.9
[2024-10-15] MEDS: Lactated Ringers 1,000 ML 100 ML IVCONT (07:55)
--- NOTE | 2024-10-15 08:48 | MHC.SHP ---
Pre-Procedural Eval Section A - 24 Hr Update-Section A only Date of Service: 10/15/24 Section B - Complete if H&P > 30 days Chief Complaint: rectal bleeding,zelaya's,constipation Relevant Family History (Specify if Yes): No Relevant Social History: None Present Medications: see Short Stay Collaborative assessment Medical History: Significant History (PCOS (polycystic ovarian syndrome) Sleep apnea Zelaya's esophagus Anxiety Vitamin D deficiency Irregular menses Multinodular thyroid) History of Previous Operations: Relevant previous surgery/procedure and date(s) (History of esophagogastroduodenoscopy (EGD) H/O colonoscopy History of hysterectomy Hx of biopsy History of back surgery Hiatal hernia History of laparoscopy) Allergies: Allergies Allergy/AdvReac Type Severity Reaction Status Date / Time No Known Allergies (No Known Allergy Verified 07/12/24 15:36 Allergies*) Review of Systems Sugical H&P ROS: Negative: Constitution, Cardiovascular, Respiratory, Neurological, Psychiatric, Hem-Onc, Allergic/Immunologic, Gastrointestinal, Genitourinary, Musculoskeletal, Integumentary, Endocrine and Eyes/Ears/Nose/Throat Exam Surgical H&P Exam: Normal: HEENT, Normal: Heart, Normal: Lungs, Normal: Extremities, Normal: Abdomen, Normal: Skin and Normal: Neurological Plan Diagnosis/Plan: Unchanged I have reviewed the history and physical and performed a pertinent physical examination on my patient. No changes have occurred unless specified. Time Spent With Patient Time: Total time managing care of this patient today ____ minutes.
--- NOTE | 2024-10-15 09:35 | HO.OPN-COLON ---
Colonoscopy Operative Note Operative Note Date of Service: 10/15/24 Narrative: Operative Information Procedure Description: EGD, Colonoscopy Indication: barretts, screening Anesthesia: MAC FLEXIBLE TRANSORAL UPPER GASTROINTESTINAL ENDOSCOPY AND COLONOSCOPY PROCEDURE NOTE UPPER ENDOSCOPY Consent: Indications for the procedure and potential complications of bleeding, perforation, reaction to medications and missed diagnosis were discussed with the patient and informed consent was obtained. Instrument: Olympus GIF H 190 J mid size upper endoscope Monitoring: Vital signs and clinical assessment, continuous EKG monitoring, Pulse oximetry, Carbon Dioxide monitoring and blood pressure monitoring were done throughout the procedure. Procedure: The patient was placed in the left lateral decubitis position and pre-procedure medications were administered and a bite block was placed. The endoscope was inserted into the mouth and advanced under direct vision to the third part of duodenum. A careful inspection was made as the upper endoscope was withdrawn including a retroflexed examination of the proximal stomach; Findings and interventions are described below. Findings: Larynx:normal Esophagus: GE junction at 37 cm, diaphragm hiatus at 40 cm, with 3 cm hiatal hernia, long segment Barretts noted C1M7, bx taken per [place] protocol and WATS brushings as well as tissue cypher Stomach: Patchy atrophy and erythema. Biopsies were obtained. Grade 2 flap valve on retroflexed examination of the cardia. Duodenum: Normal bulb and descending duodenum, Intervention: Biopsies as noted above, brushings COLONOSCOPY Instrument: Olympus variable stiffness pediatric scope 190L Colonoscopy Monitoring: Vital signs and clinical assessment, continuous EKG monitoring, Pulse oximetry, Carbon Dioxide monitoring and blood pressure monitoring were done throughout the procedure. Colon withdrawal time was 12 minutes. Procedure: The patient was placed in the left lateral decubitis position and pre-procedure medications were administered. After a digital rectal examination of the ano-rectum, the video colonoscope was inserted into the rectum and advanced through the colon to the cecum/TI. The colonoscope was slowly withdrawn in a retrograde panoramic fashion and the colon mucosa was carefully examined including a retroflexed view of the rectum. Findings and interventions are described below. Procedure Difficulty:moderate Findings: Terminal Ileum-normal Cecum:normal Right sided retroflexion- nml Ascending Colon: normal Transverse Colon -normal Descending Colon:normal Sigmoid Colon: normal Rectum: Retroflexion with small internal hemorrhoids, grade I, 5-7 mm sessile polyp removed with cold snare Anorectum - normal Colon preparation: [place] Bowel Preparation Scale Right colon; 1-2 Transverse colon: 2 Left colon; 2 (0 = Unprepared colon segment with mucosa not seen due to solid stool that cannot be cleared. 1 = Portion of mucosa of the colon segment seen, but other areas of the colon segment not well seen due to staining, residual stool and/or opaque liquid. 2 = Minor amount of residual staining, small fragments of stool and/or opaque liquid, but mucosa of colon segment seen well. 3 = Entire mucosa of colon segment seen well with no residual staining, small fragments of stool or opaque liquid) Impression and Post Procedure Diagnosis: Endoscopy Findings: barretts gastritis Colonoscopy Findings: colon polyp x 1 internal hemorrhoids Plan: Await Pathology results Repeat Colonoscopy in 5 years due to few areas of fair prep on right or earlier if clinically indicated High fiber diet leaflet avoid straining at stool, epsom salts and sitz bath, anusol supps or cream Repeat EGD in 2-3 yrs if no dysplasia and tissue cypher low risk Above findings were reviewed with the patient and relevant handouts were provided if indicated.
[2024-10-15 09:40] VITALS: BP 119/66; PULSE 75; RESP 12; TEMP 36.7; O2SAT 97
[2024-10-15 09:55] VITALS: BP 131/71; PULSE 62; RESP 16; TEMP 36.6; O2SAT 97
== END 2024-10-15 10:16 | disposition home or self-care (01) ==
PROVIDERS: PCP Nurse Practitioner Family; Visit Provider Internal Medicine Gastroenterology
PROC: (CPT 45385; principal; 2024-10-15 09:20)
DX: Z12.11 Encounter for screening for malignant neoplasm of colon (principal); K62.1 Rectal polyp; K64.0 First degree hemorrhoids; K22.70 Barrett's esophagus without dysplasia; K20.80 Other esophagitis without bleeding; K29.60 Other gastritis without bleeding; K44.9 Diaphragmatic hernia without obstruction or gangrene; E66.9 Obesity, unspecified; Z68.41 Body mass index [BMI] 40.0-44.9, adult; K59.01 Slow transit constipation; Z87.891 Personal history of nicotine dependence; Z79.899 Other long term (current) drug therapy
CPT/HCPCS: 45385; 43239; 88305; 88313; 88342; J2003; J2704

== ENCOUNTER → 2024-10-15 07:30 | Outpatient (BNV) | payer OTHER, SELFPAY | PROVIDERS: PCP Nurse Practitioner Family; Visit Provider Internal Medicine Gastroenterology | DX: K22.70 Barrett's esophagus without dysplasia (principal); K29.70 Gastritis, unspecified, without bleeding; Z12.11 Encounter for screening for malignant neoplasm of colon; K63.5 Polyp of colon; K64.8 Other hemorrhoids | CPT/HCPCS: 43239; 45385 ==

== ENCOUNTER 2024-11-01 15:32 | Outpatient (AMB) | payer OTHER, SELFPAY ==
[2024-11-01 15:35] VITALS: BP 118/68; PULSE 74; O2SAT 96; BMI 40.5
--- NOTE | 2024-11-01 15:35 | A.OFFVIS_ITS ---
Vital Signs 11/01/24 15:35 Height 5 ft 10 in Weight 282 lb BMI 40.5 BP 118/68 Blood Pressure Location Rt brachial Position Sitting Pulse 74 Pulse Source Pulse Oximeter Pulse Oximetry (%) 96 Oxygen Delivery Method Room Air Intake Visit Reasons: S/P double; Dr. Villeda Intake Note: ESTABLISHED PATIENT for mgmt of Brown's. S/P duo. Chief Complaint; Pt denies any changes or concerns since last visit. 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 Villeda: Details: LAST VISIT: Brown's esophagus Constipation Bright red rectal bleeding Plan Message sent to surgical schedulers to book upper endoscopy and colonoscopy for patient. Long discussion with patient about the importance of taking PPI every day as she was diagnosed with Brown's without high-grade dysplasia confirmed by biopsy. Patient will start taking Dulcolax daily. What to expect before during and after procedure discussed with patient. Stressed the importance of good bowel prep and clear liquid diet before the procedure. Patient will call our office if she will continue to have symptoms or experience any additional GI concerning symptoms. She is agreeable to this plan and verbalizes understanding of instructions. She was given the opportunity to ask questions and all questions answered. ? Thank you for allowing me to participate in her care New polyethylene glycol 3350 (Miralax) As directed by gastroenterology department at [facility] 238 grams PO ONCE 238 grams 0RF Z12.11 bisacodyl (Dulcolax (bisacodyl)) 10 mg (2 x 5 mg) PO BEDTIME 180 tabs 4RF pantoprazole take one tablet half an hour before breakfast 40 mg PO DAILY 90 tabs 2RF K21.9 Discontinued docusate sodium Discontinued Reason: Doctor's Order 100 mg PO BEDTIME 90 caps 3RF K59.00 sennosides (Senokot) Discontinued Reason: Doctor's Order 8.6 mg PO DAILY 90 tabs 3RF K59.04 UPPER ENDOSCOPY AND COLONOSCOPY Findings: Larynx:normal Esophagus: GE junction at 37 cm, diaphragm hiatus at 40 cm, with 3 cm hiatal hernia, long segment Barretts noted C1M7, bx taken per [place] protocol and WATS brushings as well as tissue cypher Stomach: Patchy atrophy and erythema. Biopsies were obtained. Grade 2 flap valve on retroflexed examination of the cardia. Duodenum: Normal bulb and descending duodenum, Intervention: Biopsies as noted above, brushings COLONOSCOPY Instrument: Olympus variable stiffness pediatric scope 190L Colonoscopy Monitoring: Vital signs and clinical assessment, continuous EKG monitoring, Pulse oximetry, Carbon Dioxide monitoring and blood pressure monitoring were done throughout the procedure. Colon withdrawal time was 12 minutes. Procedure: The patient was placed in the left lateral decubitis position and pre-procedure medications were administered. After a digital rectal examination of the ano-rectum, the video colonoscope was inserted into the rectum and advanced through the colon to the cecum/TI. The colonoscope was slowly withdrawn in a retrograde panoramic fashion and the colon mucosa was carefully examined including a retroflexed view of the rectum. Findings and interventions are described below. Procedure Difficulty:moderate Findings: Terminal Ileum-normal Cecum:normal Right sided retroflexion- nml Ascending Colon: normal Transverse Colon -normal Descending Colon:normal Sigmoid Colon: normal Rectum: Retroflexion with small internal hemorrhoids, grade I, 5-7 mm sessile polyp removed with cold snare Anorectum - normal Colon preparation: [place] Bowel Preparation Scale Right colon; 1-2 Transverse colon: 2 Left colon; 2 (0 = Unprepared colon segment with mucosa not seen due to solid stool that cannot be cleared. 1 = Portion of mucosa of the colon segment seen, but other areas of the colon segment not well seen due to staining, residual stool and/or opaque liquid. 2 = Minor amount of residual staining, small fragments of stool and/or opaque liquid, but mucosa of colon segment seen well. 3 = Entire mucosa of colon segment seen well with no residual staining, small fragments of stool or opaque liquid) Impression and Post Procedure Diagnosis: Endoscopy Findings: barretts gastritis Colonoscopy Findings: colon polyp x 1 internal hemorrhoids Plan: Await Pathology results Repeat Colonoscopy in 5 years due to few areas of fair prep on right or earlier if clinically indicated High fiber diet leaflet avoid straining at stool, epsom salts and sitz bath, anusol supps or cream Repeat EGD in 2-3 yrs if no dysplasia and tissue cypher low risk PATHOLOGY RESULTS Diagnosis A. Stomach, biopsy: Antral-type and oxyntic mucosa within normal limits; no Helicobacter organisms seen. B. Esophagus, 38 cm, biopsy: - Brown esophagus with background mild chronic inactive inflammation. - No dysplasia seen. - Squamous epithelium within normal limits. C. Esophagus, 36 cm, biopsy: - Brown esophagus with background moderate chronic inactive inflammation. - No dysplasia seen. - Squamous epithelium within normal limits. D. Esophagus, 34 cm, biopsy: - Brown esophagus with background mild chronic inactive inflammation. - No dysplasia seen. - No squamous epithelium seen. E. Esophagus, 32 cm, biopsy: - Brown esophagus with background moderate chronic inactive inflammation. - No dysplasia seen. - Squamous epithelium within normal limits. F. Esophagus, 30 cm, biopsy: - Brown esophagus with background moderate chronic inactive inflammation. - No dysplasia seen. - Squamous epithelium within normal limits. G. Rectum, polypectomy: Hyperplastic mucosal polyp. Comment: TissueCypher results will be addended (part E TODAY'S VISIT Patient is here today for follow-up and to discuss upper endoscopy and colonoscopy results. Patient denies any ill effects from the prep, anesthesia or procedure itself. Colonoscopy 1 hyperplastic polyp, however due to suboptimal prep recommendation was made for patient to return in 5 years. Brown's esophagus found on endoscopy without dysplasia. Waiting tissue cypher. Patient reports that she is having epigastric pain ever since she started taking pantoprazole. Patient states that the pain is unbearable. No acid reflux, reports burning sensation in the epigastric area. Patient denies any nausea or vomiting. Denies dyspepsia, dysphagia or odynophagia. Denies melena, hematochezia. [facility] Medical History PCOS (polycystic ovarian syndrome) Sleep apnea Brown's esophagus Anxiety Vitamin D deficiency Irregular menses Multinodular thyroid Surgical History History of esophagogastroduodenoscopy (EGD) H/O colonoscopy History of hysterectomy Hx of biopsy History of back surgery Hiatal hernia History of laparoscopy Family History Father Diabetes mellitus HTN (hypertension) CVD (cardiovascular disease) Substance use disorder Mother Drug addict End stage liver disease Asthma Substance use disorder Brother Substance use disorder Sister No problems noted. Maternal Aunt Family history of thyroid problem Paternal Aunt Substance use disorder Paternal Uncle Substance use disorder Social History Household Members: Significant Other Housing: House Alcohol intake: current Alcohol intake frequency: does not drink Patient Tobacco Use Status: Former Tobacco user Cigarette Packs Per Day: 1 Years Smoked: 30 e-Cigarette/Vaping Use: Never Used Second Hand Smoke Exposure: No service: No Current occupational status: employed Current occupation: [employer] Current occupational exposures/hazards: No Cognitive needs: No Hearing needs: No Vision needs: No Female Reproductive History Menstrual Age of Menarche: 14 Review of Systems Const Denies weight gain and Denies weight loss ENT Reports no additional complaints, Denies dysphagia and Denies odynophagia Card Reports no additional complaints Resp Reports no additional complaints GI Denies abdominal pain, Denies belching, Denies melena, Reports bloating, Denies change in bowel habits, Reports constipation, Denies dysphagia, Denies excessive flatus, Denies dyspepsia, Reports heartburn, Denies diarrhea, Denies loose stools, Denies nausea, Denies odynophagia and Denies vomiting Musc Reports no additional complaints Neuro Reports no additional complaints Psych Reports no additional complaints Endo Reports no additional complaints Physical Exam Vital Signs: Last Vital Signs Pulse 74 11/01/24 15:35 BP 118/68 11/01/24 15:35 Pulse Ox 96 11/01/24 15:35 Oxygen Delivery Method Room Air 11/01/24 15:35 BMI result Body Mass Index 40.5 Const General: healthy appearing and no acute distress Nutritional Appearance: well nourished and obese Orientation/consciousness: patient oriented x3 Resp Effort & Inspection: normal respiratory effort, able to speak in complete sentences, no tracheal deviation and symmetric chest movement Auscultation: clear to auscultation bilaterally Cardio Rate: regular rate GI Inspection: Yes normal to inspection and No distended Palpation (GI): Soft to palpation, not firm, nontender and No hepatosplenomegaly present Auscultation: normal bowel sounds General: Yes no CVA tenderness Back/Spine/Pelvis Back: no CVA tenderness Skin General skin exam: elasticity normal, turgor normal and dry skin Neuro General: patient oriented x3 Psych Appearance: grossly normal Mental Status: mental status grossly normal Assessment & Plan Assessment & Plan (1) Brown's esophagus: Code(s): K22.70 - Brown's esophagus without dysplasia Category: Medical Qualifiers: Brown's esophagus type: without dysplasia Qualified Code(s): K22.70 - Brown's esophagus without dysplasia (2) Status post colonoscopy: Code(s): Z98.890 - Other specified postprocedural states (3) Postprandial epigastric pain: Code(s): R10.13 - Epigastric pain Plan Patient will stop taking pantoprazole and we will start her on Nexium. Avoid dietary triggers in late night snacking. Staying upright for minimal 3 hours after meals discussed with patient. Waiting for tissue cypher to determine when patient will be returning for endoscopy. Three years if low. Colonoscopy in 5 years due to suboptimal prep, sooner on as needed basis. Patient will call us if she will need to return back to the office. She is agreeable and verbalizes understanding of instructions. She was given the opportunity to ask questions and all questions answered Thank you for allowing me to participate in her care Medications: New esomeprazole magnesium (Nexium) 40 mg PO DAILY 30 caps 2RF K21.9 - Gastro- esophageal reflux disease without esophagitis Coding Level of Care Code Est Pt Level 4 (19024) Complex EM visit Add On G2211 Diagnoses Brown's esophagus without dysplasia K22.70 Brown's esophagus type: without dysplasia Status post colonoscopy Z98.890 Postprandial epigastric pain R10.13 Time Spent (min) 35 Comment 25 minutes spent with patient and additional 10 minutes spent reviewing her records
--- OUTSIDE RECORDS SUMMARY | 2024-11-01 15:35 | XMS_ITS | Patient Health Record ---
Author Organization [facility] Address [address] [place] [address] Care Team Providers Care Program Project Manager Name Role Phone Brooks Peng Unavailable [phone] Reason For Referral No Information Plan Of Treatment No Information
== END 2024-11-01 16:03 | disposition home or self-care (01) ==
LOC: HO.HGI 15:33
PROVIDERS: PCP Nurse Practitioner Family; Visit Provider Nurse Practitioner Family
DX: K22.70 Barrett's esophagus without dysplasia (principal); Z98.890 Other specified postprocedural states; R10.13 Epigastric pain
CPT/HCPCS: 99214; G2211

== ENCOUNTER 2024-12-16 08:25 | Outpatient (AMB) | payer OTHER, SELFPAY ==
--- NOTE | 2024-12-16 08:33 | MHC.PC.OV ---
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 Accompanied by: Self / Same As Patient Allergies No Known Allergies (No Known Allergies*) Allergy (Verified 12/16/24 08:47) Medication List - Last Reconciled 12/16/24 by ANTWAN Penaloza- bupropion HCl SR (Wellbutrin SR) 100 mg PO DAILY 90 days esomeprazole magnesium (Nexium) 40 mg PO DAILY ibuprofen 800 mg PO DAILY PRN 90 days Tobacco use date assessed: 12/16/24 Dental Screening Dental Screen Date: 12/16/24 Did you have a dental visit in the last 12 months?: No Did you have a dental problem in the last 6 months where you did not have access to dental care?: No Was dental information given to patient?: Patient has dentist HPI PE - see comments HPI Details History of Present Illness The patient is a 49-year-old female presenting for a physical examination. She reports feeling off with frequent forgetfulness, although a previous MRI was negative for any abnormalities. She denies experiencing chest pain, increased dyspnea, urinary or bowel issues, suicidal ideation, or fever and chills. The patient has a history of Polycystic Ovary Syndrome (PCOS) and is currently following up with her reception. She underwent a hysterectomy in the past. She is morbidly obese and reports heavy snoring and daytime fatigue, suggesting possible obstructive sleep apnea. She is being referred to sleep medicine for further evaluation and management. The patient exhibits swelling in her bilateral extremities, with +1 pitting edema noted. Venous insufficiency testing via ultrasound is planned to assess this condition further. Has smoked cigarettes in the past, now smokes marijuana Health Maintenance - Mammogram: Up to date - Colon cancer screening: Up to date Social History Review of Systems - Cardiovascular: Denies chest pain - Respiratory: Denies increased dyspnea - Genitourinary: Denies urinary issues - Gastrointestinal: Denies bowel issues - Neurological: Reports feeling off with forgetfulness - Psychiatric: Denies suicidal ideation - General: Denies fever and chills Physical Exam General: Cooperative, healthy appearing, comfortable, no acute distress and well developed, morbidly obese Orientation: Patient oriented x3 Limitations: No limitations Head: Normal to inspection Ears: Hearing grossly normal bilaterally Nose: Normal external nose present Face and sinus: Normal facial exam Eyes: Appearance normal, both eyes and all related structures Neck: Normal visual inspection and Yes full ROM Respiratory: Normal respiratory effort and able to speak in complete sentences. Clear to auscultation bilaterally, reports heavy snoring, possible obstructive sleep apnea Cardiovascular: Regular rate and rhythm. Normal S1 and S2 GI: Normal to inspection. Soft to palpation and nontender Skin: No rashes or lesions noted Neuro: Patient oriented x3, reports feeling off, forgetfulness Extremities: Swelling through bilateral extremities, +1 edema noted Results Plan Patient was informed and verbally consented to the use of an ambient scribe for clinic note documentation during this visit. 1. Polycystic Ovary Syndrome (Pcos) The patient is continuing follow-up with her reception for management of PCOS. 2. Morbid Obesity The patient is morbidly obese and reports heavy snoring and daytime fatigue, suggesting possible obstructive sleep apnea. She is being referred to sleep medicine for further evaluation and management. 3. Preventative Care The patient's mammogram and colon cancer screening are up to date. 4. Venous Insufficiency (Suspected) Venous insufficiency testing via ultrasound is planned to assess the swelling in her bilateral extremities. Discussion Notes I discussed with the patient the likelihood of obstructive sleep apnea due to her symptoms of heavy snoring and daytime fatigue. I recommended a referral to sleep medicine for further evaluation and management. Additionally, I advised venous insufficiency testing via ultrasound to investigate the swelling in her bilateral extremities. Patient Instructions - Follow up with sleep medicine for evaluation of possible obstructive sleep apnea. - Complete venous insufficiency testing as scheduled. [facility] Medical History PCOS (polycystic ovarian syndrome) Sleep apnea Brown's esophagus Anxiety Vitamin D deficiency Irregular menses Multinodular thyroid Surgical History History of esophagogastroduodenoscopy (EGD) H/O colonoscopy History of hysterectomy Hx of biopsy History of back surgery Hiatal hernia History of laparoscopy Family History Father Diabetes mellitus HTN (hypertension) CVD (cardiovascular disease) Substance use disorder Mother Drug addict End stage liver disease Asthma Substance use disorder Brother Substance use disorder Sister No problems noted. Maternal Aunt Family history of thyroid problem Paternal Aunt Substance use disorder Paternal Uncle Substance use disorder Social History (Reviewed 12/16/24 @ 08:48 by Heladio Castañeda, [facility]) Household Members: Significant Other Housing: House Alcohol intake: current Alcohol intake frequency: does not drink Patient Tobacco Use Status: Former Tobacco user Cigarette Packs Per Day: 1 Years Smoked: 30 e-Cigarette/Vaping Use: Never Used Second Hand Smoke Exposure: No service: No Current occupational status: employed Current occupation: [employer] Current occupational exposures/hazards: No Cognitive needs: No Hearing needs: No Vision needs: No Female Reproductive History Menstrual Age of Menarche: 14 Questionnaire PHQ-9 Over the last 2 weeks, how often have you been bothered by any of the following problems? 1. Little interest or pleasure in doing things: not at all 2. Feeling down, depressed, or hopeless: not at all 3. Trouble falling or staying asleep, or sleeping too much: not at all 4. Feeling tired or having little energy: not at all 5. Poor appetite or overeating: not at all 6. Feeling bad about yourself - or that you are a failure or have let yourself or your family down: not at all 7. Trouble concentrating on things, such as reading the newspaper or watching television: not at all 8. Moving or speaking so slowly that other people could have noticed. Or the opposite - being so fidgety or restless that you have been moving around a lot more than usual: not at all 9. Thoughts that you would be better off or of hurting yourself in some way: not at all Total score: 0 Depression Screening Interpretation: Negative Depression Screening Done: Yes 27500 - PHQ-9 Billing: Yes Source: Developed by Drs. Brooks Stauffer, Anushka Gutierrez, Todd Bhatti and colleagues, with an educational wang from [employer]. Thrive Questionnaire Date Thrive assessed: 11/13/23 I am a: Patient What is your living situation today?: I have a steady place to live Within the past 12 months, did the food you bought not last and you didn't have the money to get more?: Never true Within the past 12 months, did you worry whether your food would run out before you got money to buy more?: Never true Do you have trouble paying for medicines?: No Do you have trouble getting transportation to medical appointments?: No Do you have trouble paying your heating and electricity bill?: No Do you have trouble taking care of your child, family member or friend?: No Do you have trouble with day-to-day activities such as bathing, preparing meals, shopping, managing finances, etc.?: No Are you currently unemployed and looking for a job?: No Are you interested in more education?: No Please select the resources that you would like help with: None Currently or been in a relationship where the following occur: No concerns reported THRIVE Score: 0 AUDIT C Alcohol Use Questionnaire (AUDIT-C) 1. How often do you have a drink containing alcohol?: Never Total Score: 0 MAHI-7 AMB Questionnaire MAHI-7 Date MAHI - 7 assessed: 12/16/24 Feeling nervous, anxious, or on edge: 0 = Not at all Not being able to stop or control worryin = Not at all Worrying too much about different things: 0 = Not at all Trouble relaxin = Not at all Being so restless that it is hard to sit still: 0 = Not at all Becoming easily annoyed or irritable: 0 = Not at all Feeling afraid as if something awful might happen: 0 = Not at all Total MAHI-7 score (0-4 normal; 5-9 mild; 10-14 moderate; 15-21 severe): 0 Source: Developed by Drs. Brooks Stauffer, Anushka Gutierrez, Todd Bhatti and colleagues, with an educational wang from [employer]. MAHI-7 Assessment Billing MAHI-7 Assessment Tool: MAHI-7 Assessment 15582 Physical exam (Primary Care) Vital Signs: Last Vital Signs Temp 99.1 F 12/16/24 08:34 Pulse 76 12/16/24 08:34 BP 118/80 12/16/24 08:34 Pulse Ox 96 12/16/24 08:34 Oxygen Delivery Method Room Air 12/16/24 08:34 BMI result Body Mass Index 40.2 Tobacco/Smoking Status: Tobacco use Status Tobacco use date assessed 12/16/24 12/16/24 08:39 Patient Tobacco Use Status Former Tobacco user 12/16/24 08:39 e-Cigarette/Vaping Use Never Used 12/16/24 08:39 PHQ-9: PHQ-9 Score PHQ-9: Total score 0 12/16/24 08:39 Depression Screening Interpretation: Negative Thrive Assessment: Date of Thrive Assessment Date Thrive assessed 11/13/23 12/16/24 08:39 Currently or been in a relationship where the following occur: No concerns reported Coding Level of Care Code Est Pt Level 3 (69564) Est Pt Prev Care 40-64y(58291) Diagnoses Vitamin D deficiency E55.9 Localized swelling of both lower legs R22.43 Obesity, morbid, BMI 40.0-49.9 E66.01 Sleep apnea G47.30 Loud snoring R06.83 Encounter for routine adult physical exam with abnormal findings Z00. Additional Codes MAHI-7 Assessment Billing - MAHI-7 Assessment Tool: MAHI-7 Assessment 59743 ([id number]) PHQ-9 - 66325 - PHQ-9 Billing: Yes ([id number]) Assessment & Plan Assessment & Plan (1) Vitamin D deficiency: Code(s): E55.9 - Vitamin D deficiency, unspecified Category: Medical (2) Localized swelling of both lower legs: Code(s): R22.43 - Localized swelling, mass and lump, lower limb, bilateral Category: Medical (3) Obesity, morbid, BMI 40.0-49.9: Code(s): E66.01 - Morbid (severe) obesity due to excess calories Category: Medical (4) Sleep apnea: Code(s): G47.30 - Sleep apnea, unspecified Category: Medical (5) Loud snoring: Code(s): R06.83 - Snoring Category: Medical (6) Encounter for routine adult physical exam with abnormal findings: Code(s): Z00.01 - Encounter for general adult medical examination with abnormal findings Category: Medical Plan . Orders: Orders Comprehensive [place]. Panel Fast Today Z00.00 - Encounter for general adult medical examination without abnormal findings TSH reflex Free T4 Today Z00.00 - Encounter for general adult medical examination without abnormal findings Lipid Panel Today Z00.00 - Encounter for general adult medical examination without abnormal findings Vitamin D 25-OH Total Today E55.9 - Vitamin D deficiency, unspecified US venous insuf bilat Today R22.43 - Localized swelling, mass and lump, lower limb, bilateral AMB EKG-In Office Today Z00.00 - Encounter for general adult medical examination without abnormal findings Complete Blood Count Auto Diff Today Z00.00 - Encounter for general adult medical examination without abnormal findings UA CC w/rflx Micro + Cult Today Z00.00 - Encounter for general adult medical examination without abnormal findings Referrals Sleep Medicine Referral E66.01 - Morbid (severe) obesity due to excess calories, G47.30 - Sleep apnea, unspecified, R06.83 - Snoring
[2024-12-16 08:34] VITALS: BP 118/80; PULSE 76; TEMP 37.3; O2SAT 96; BMI 40.2
--- OUTSIDE RECORDS SUMMARY | 2024-12-16 09:21 | XMS_ITS | Patient Health Record ---
Author Organization [facility] Address [address] [place] [address] Care Team Providers Care Iron Handler Name Role Phone Brooks Peng Unavailable [phone] Reason For Referral No Information Plan Of Treatment No Information
== END 2024-12-16 09:22 | disposition home or self-care (01) ==
LOC: HO.HMCC 08:26
PROVIDERS: PCP Nurse Practitioner Family; Visit Provider Nurse Practitioner Family
DX: Z00.01 Encounter for general adult medical examination with abnormal findings (principal); G47.30 Sleep apnea, unspecified; E66.01 Morbid (severe) obesity due to excess calories; Z68.41 Body mass index [BMI] 40.0-44.9, adult; E55.9 Vitamin D deficiency, unspecified; R22.43 Localized swelling, mass and lump, lower limb, bilateral; R06.83 Snoring

== ENCOUNTER → 2024-12-16 08:25 | Outpatient (BNVA) | payer OTHER, SELFPAY | PROVIDERS: PCP Nurse Practitioner Family; Visit Provider Nurse Practitioner Family | DX: Z00.01 Encounter for general adult medical examination with abnormal findings (principal); E28.2 Polycystic ovarian syndrome; E66.01 Morbid (severe) obesity due to excess calories; E55.9 Vitamin D deficiency, unspecified; R22.43 Localized swelling, mass and lump, lower limb, bilateral; G47.30 Sleep apnea, unspecified; R06.83 Snoring; Z68.41 Body mass index [BMI] 40.0-44.9, adult; Z87.891 Personal history of nicotine dependence | CPT/HCPCS: 96127 ==

== ENCOUNTER 2024-12-19 12:47 | Outpatient (REF) | payer OTHER, SELFPAY ==
[2024-12-19 13:02] LABS: MANUAL DIFF FLAG NO
[2024-12-19 13:42] LABS: Hematocrit 41.8 % (37.0-47.0); Hemoglobin 13.3 g/dl (12.0-16.0); Imm Gran Abs Auto 0.04 X10*3/uL (0.00-0.03); Imm Gran Pct Auto 0.4 % (0.0-0.4); Lymphocytes Absolute Auto 2.4 X10*3/uL (1.2-4.9); Mean Corpuscular HGB Conc 31.8 g/dl (31.0-35.0); Mean Corpuscular Hemoglobin 26.5 pg (27.0-33.0); Mean Corpuscular Volume 83.4 fL (80.0-98.0); NRBC Abs Auto 0.000 X10*3/uL (0.0-0.012); NRBC Pct Auto 0.0 /100WBC (0.0-0.2); Platelet Count 376 X10*3/uL (160-400); Red Blood Count 5.01 X10*6/uL (4.20-5.50); White Blood Count 9.8 X10*3/uL (4.8-10.8)
[2024-12-19 13:50] LABS: Appearance Urine Clear; Glucose Urine UA Negative (Negative); PH 6.0 (5.0-9.0); Specific Gravity - Urine 1.025 (1.005-1.025)
[2024-12-19 14:32] LABS: Alanine Aminotransferase 21 U/L (0-31); Albumin Level 4.3 g/dL (3.5-5.0); Alkaline Phosphatase 88 U/L (39-117); Anion Gap 12 (12-20); Aspartate Amino Transferase 16 U/L (5-31); Blood Urea Nitrogen 11 mg/dL (9-16); Calcium 9.4 mg/dL (8.4-10.2); Carbon Dioxide 30 mmol/L (22-29); Chloride 107 mmol/L (96-108); Cholesterol 143 mg/dL (<200); Estimated Glomerular Filt Rate > 60; HDL Cholesterol 41 mg/dL (>40); Potassium 4.9 mmol/L (3.3-5.1); Sodium 144 mmol/L (135-145); Total Protein 7.0 g/dL (6.5-8.0); Triglycerides 64 mg/dL (<150)
--- OUTSIDE RECORDS SUMMARY | 2024-12-19 16:57 | XMS_ITS | Patient Health Record ---
Author Organization [facility] Address [address] [place] [address] Care Team Providers Care Prison Warden Name Role Phone Brooks Peng Unavailable [phone] Reason For Referral No Information Plan Of Treatment No Information
== END 2024-12-19 12:48 | disposition home or self-care (01) ==
LOC: HO.LAB 12:47
PROVIDERS: PCP Nurse Practitioner Family; Visit Provider Nurse Practitioner Family
DX: Z00.00 Encounter for general adult medical examination without abnormal findings (principal); E55.9 Vitamin D deficiency, unspecified; Z13.6 Encounter for screening for cardiovascular disorders; Z13.29 Encounter for screening for other suspected endocrine disorder
CPT/HCPCS: 36415; 80053; 80061; 81003; 82306; 84443; 85025

== ENCOUNTER 2025-01-16 08:29 | Outpatient (AMB) | payer OTHER, SELFPAY ==
--- NOTE | 2025-01-16 08:31 | A.OFFVIS_ITS ---
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 She is morbidly obese and reports heavy snoring and daytime fatigue, suggesting possible obstructive sleep apnea. Hard time staying asleep. wakes up 4times per night. Goes to bed at 9pm and wakes up 5am No witnessed apnea/gasping. No headaches or naps. No history of sleep studies. Accompanied by: Self / Same As Patient Allergies No Known Allergies (No Known Allergies*) Allergy (Verified 01/16/25 08:35) HPI Comments Details: 49 year old female presents for a sleep apnea evaluation by her PCP. She goes to bed at 9pm and wakes up at 5am, with multiple arousals usually about 3-4x per night. She falls asleep easily and wakes up in 20 min feeling fatigued. She denies snoring, gasping for air, though her partner says she snores. She has bruxism, does not wear a mouth guard and denies jaw pain. She has vasomotor symptoms due to ole-menopause. She has hot- flashes with mood irritabilty, and anxiety and has been taking Wellbutrin 100mg po daily for years. She has a poor memory, she can't remember anything, does not remember details about her personal life, and family member's date of births. She denies word recall difficulties, she loses focus easily, and lacks attention to details. She denies getting lost while driving. She forgets where she is and why she is there when goes into stores or rooms. She had a hiatal hernia in 2014 and surgery and dx with Sander's esophagus, she still has GERD though improved since starting Nexium recently 40mg po. She denies RLS symptoms. She has an U/S pending for bilateral legs edema, per pcp due to vascular difficulties. Former smoker of nicotine, she quit over 10 years ago, now she smokes 2-3 joints of MJ a day x 30 years. [facility] Medical History PCOS (polycystic ovarian syndrome) Sleep apnea Brown's esophagus Anxiety Vitamin D deficiency Irregular menses Multinodular thyroid Surgical History History of esophagogastroduodenoscopy (EGD) H/O colonoscopy History of hysterectomy Hx of biopsy History of back surgery Hiatal hernia History of laparoscopy Family History Father Diabetes mellitus HTN (hypertension) CVD (cardiovascular disease) Substance use disorder Mother Drug addict End stage liver disease Asthma Substance use disorder Brother Substance use disorder Sister No problems noted. Maternal Aunt Family history of thyroid problem Paternal Aunt Substance use disorder Paternal Uncle Substance use disorder Social History Household Members: Significant Other Housing: House Alcohol intake: current Alcohol intake frequency: does not drink Patient Tobacco Use Status: Former Tobacco user Cigarette Packs Per Day: 1 Years Smoked: 30 e-Cigarette/Vaping Use: Never Used Second Hand Smoke Exposure: No service: No Current occupational status: employed Current occupation: [employer] Current occupational exposures/hazards: No Cognitive needs: No Hearing needs: No Vision needs: No Female Reproductive History Menstrual Age of Menarche: 14 Physical Exam Vital Signs: Last Vital Signs Pulse 77 01/16/25 08:32 BP 116/78 01/16/25 08:32 Pulse Ox 96 01/16/25 08:32 Oxygen Delivery Method Room Air 01/16/25 08:32 BMI result Body Mass Index 40.0 Const General: cooperative, comfortable and no acute distress Nutritional Appearance: obese Orientation/consciousness: patient oriented x3 HEENT Face and sinus: Yes face symmetric Teeth and gingiva: other ([place] score of 3 ) Eyes Pupils: Equal, round and reactive pupils present Neck Neck: Yes full ROM Resp Effort & Inspection: normal respiratory effort and able to speak in complete sentences Neuro General: patient oriented x3 and moves all extremities Cranial nerves: Yes Equal, round and reactive pupils present, Yes Normal accommodation reflex present, Yes Normal facial strength present, Yes Midline tongue present, Yes Ability to bilaterally rotate head present and Yes Ability to bilaterally elevate shoulders present Cognition (Neuro): normal cognition Gait exam (Neuro): Normal gait present Motor exam (neuro): 5/5 motor strength present throughout and Normal motor muscle tone present throughout Psych Appearance: grossly normal Speech and movement: Normal speech and movement present Thought process: Normal thought process present Assessment & Plan Assessment & Plan (1) Excessive daytime sleepiness: Code(s): G47.19 - Other hypersomnia Category: Medical (2) Chronic fatigue: Code(s): R53.82 - Chronic fatigue, unspecified Category: Medical (3) Obesity, morbid, BMI 40.0-49.9: Code(s): E66.01 - Morbid (severe) obesity due to excess calories Category: Medical Plan HST to r/o isac BMI is 40 Weight management Labs Orders: Orders RT home sleep study Today G47.19 - Other hypersomnia Ferritin Today G47.19 - Other hypersomnia, R53.82 - Chronic fatigue, unspecified Methylmalonic Acid Today G47.19 - Other hypersomnia, G47.9 - Sleep disorder, unspecified, R53.82 - Chronic fatigue, unspecified, R53.83 - Other fatigue Homocysteine Today G47.19 - Other hypersomnia, G47.9 - Sleep disorder, unspecified, R53.82 - Chronic fatigue, unspecified, R53.83 - Other fatigue Hemoglobin A1c Today G47.19 - Other hypersomnia, R53.82 - Chronic fatigue, unspecified Vitamin D 25-OH Total Today G47.19 - Other hypersomnia, R53.82 - Chronic fatigue, unspecified Vitamin B12 and Folate Today G47.19 - Other hypersomnia, R53.82 - Chronic fatigue, unspecified TSH reflex Free T4 Today G47.19 - Other hypersomnia, R53.82 - Chronic fatigue, unspecified IRON PROFILE Today G47.19 - Other hypersomnia, G47.9 - Sleep disorder, unsp ecified, R53.82 - Chronic fatigue, unspecified, R53.83 - Other fatigue Referrals Medical Weight Management Referral E66.01 - Morbid (severe) obesity due to excess calories Patient Instructions: Sleep Hygiene provided: set a scheduled bedtime and wake time to help regulate the circadian rhythm and balance the release of pituitary hormones. Sleep in a dark room, temperatures below 68 degrees, and no devices n bed. Limit caffeinated products 6 hours prior to bed, and limit fluids 2-4 hours prior to bed. Gentle night yoga, diffusing essential oils, and playing soft music can be relaxing. Coding Level of Care Code New Pt Level 4 (65340) Diagnoses Excessive daytime sleepiness G47.19 Chronic fatigue R53.82 Obesity, morbid, BMI 40.0-49.9 E66.01 Sleep Questionnaire Difficulty falling asleep: No Difficulty staying asleep?: Yes Number of arousals: 3-4 Snoring: Yes Witnessed apneas: No Gasping arousals: No Nocturia: No GERD: Yes Vivid dreams: No Acting out dreams: No Abnormal behavior in sleep: No Abnormal movements in sleep: No Morning headaches: No Excessive daytime sleepiness: Yes Daytime naps: No Restless legs: No Hallucinations: No Sleep paralysis: No Drop attacks: No Sleep Study: No CPAP: No
[2025-01-16 08:32] VITALS: BP 116/78; PULSE 77; O2SAT 96; BMI 40.0
== END 2025-01-16 09:17 | disposition home or self-care (01) ==
LOC: HO.HSMS 08:29
PROVIDERS: PCP Nurse Practitioner Family; Visit Provider Physician Assistant Medical
DX: G47.19 Other hypersomnia (principal); R53.82 Chronic fatigue, unspecified; E66.01 Morbid (severe) obesity due to excess calories
CPT/HCPCS: 99204

== ENCOUNTER 2025-01-30 08:14 | Outpatient (REF) | payer OTHER, SELFPAY ==
--- NOTE | ~2025-01-30 | US_ITS ---
EXAMINATION: US LOWER EXTREMITY VENOUS (REFLUX EXAM), BILATERAL CLINICAL INFORMATION: R22.43. Swelling/mass/lump, lower extremity. COMPARISON: None. TECHNIQUE: Color flow triplex imaging and compression Doppler was performed to evaluate both the deep and the superficial systems bilaterally. To evaluate the superficial system, the examination was performed in the upright position. Color-flow Doppler ultrasound and compression ultrasound were utilized. In addition, maneuvers were utilized to demonstrate reflux. FINDINGS: 1. DEEP VENOUS ULTRASOUND OF THE RIGHT LOWER EXTREMITY: Common Femoral Vein: Compressible, normal respiratory variation and augmented flow. Femoral Vein: Compressible, normal color flow and augmentation. Popliteal Vein: Compressible, normal augmentation. Deep Reflux: There is no evidence of reflux in the deep system in either the common femoral vein, superficial femoral or the popliteal vein. There is no evidence of a Flores's cyst. 2. SUPERFICIAL ULTRASOUND WITH DOPPLER OF RIGHT LOWER EXTREMITY: GREAT SAPHENOUS VEIN: Saphenofemoral Junction: 0.9 cm; Reflux: 0 ms Proximal Thigh: 0.4 cm; Reflux: 0 ms Mid Thigh: 0.4 cm; Reflux: 0 ms Distal Thigh: 0.5 cm; Reflux: 0 ms At Knee: 0.6 cm; Reflux: 0 ms Proximal Calf: 0.4 cm; Reflux: 0 ms Mid Calf: 0.2 cm; Reflux: 0 ms Distal Calf: 0.3 cm; Reflux: 0 ms DUPLICATED MEDIAL GREAT SAPHENOUS VEIN: Diameter: None imaged Reflux: NA DUPLICATED LATERAL GREAT SAPHENOUS VEIN: Diameter: 0.4 cm. Reflux: NA SMALL SAPHENOUS VEIN: Saphenopopliteal Junction: 0.4 cm; Reflux: 0 ms Proximal: 0.3 cm; Reflux: 0 ms Distal: 0.3 cm; Reflux: 0 ms VEIN OF GIACOMINI: Size: NA Reflux: NA PERFORATORS: Location: None imaged Size: NA Reflux: NA VARICOSITIES: Location: Great saphenous vein at the knee Size: 0.3 cm. Reflux: NA 3. DEEP VENOUS ULTRASOUND OF THE LEFT LOWER EXTREMITY: Common Femoral Vein: Compressible, normal respiratory variation and augmented flow. Femoral Vein: Compressible, normal color flow and augmentation. Popliteal Vein: Compressible, normal augmentation. Deep Reflux: There is no evidence of reflux in the deep system in either the common femoral vein, superficial femoral or the popliteal vein. There is no evidence of a Flores's cyst. 4. SUPERFICIAL ULTRASOUND WITH DOPPLER OF LEFT LOWER EXTREMITY: GREAT SAPHENOUS VEIN: Saphenofemoral Junction: 1.1 cm; Reflux: 0 ms Proximal Thigh: 0.5 cm; Reflux: 0 ms Mid Thigh: Not identified. Distal Thigh: 0.2 cm; Reflux: 0 ms At Knee: Not identified. Proximal Calf: 0.2 cm; Reflux: 0 ms Mid Calf: 0.1 cm; Reflux: 0 ms Distal Calf: 0.2 cm; Reflux: 0 ms DUPLICATED MEDIAL GREAT SAPHENOUS VEIN: Diameter: None imaged Reflux: NA DUPLICATED LATERAL GREAT SAPHENOUS VEIN: Diameter: 0.5 cm. Reflux: NA SMALL SAPHENOUS VEIN: Saphenopopliteal Junction: 0.3 cm; Reflux: 0 ms Proximal: 0.4 cm; Reflux: 0 ms Distal: 0.2 cm; Reflux: 0 ms VEIN OF GIACOMINI: Size: NA Reflux: NA PERFORATORS: Location: Great saphenous vein, proximal calf. Size: 0.2 cm. Reflux: NA VARICOSITIES: Location: Accessory saphenous vein, proximal lateral segment. Great saphenous vein proximal thigh segment. Size: 0.3 and 0.5 cm respectively. Reflux: NA US/US venous insuf bilat IMPRESSION: Right: No venous insufficiency. Varices without reflux in the great saphenous vein at the knee. Left: No venous insufficiency. Perforators and varices without reflux. Electronically signed by: Renny Perea MD 01/30/2025 09:26 AM EDT
== END 2025-01-30 08:15 | disposition home or self-care (01) ==
LOC: HO.US 08:14
PROVIDERS: PCP Nurse Practitioner Family; Visit Provider Nurse Practitioner Family
DX: R22.43 Localized swelling, mass and lump, lower limb, bilateral (principal)
CPT/HCPCS: 93970

== ENCOUNTER → 2025-01-30 08:16 | Outpatient (BNV) | payer OTHER, SELFPAY | PROVIDERS: PCP Nurse Practitioner Family; Visit Provider Radiology Diagnostic Radiology | DX: I83.93 Asymptomatic varicose veins of bilateral lower extremities (principal) | CPT/HCPCS: 93970 ==

== ENCOUNTER 2025-03-12 08:13 | Outpatient (AMB) | payer OTHER, SELFPAY ==
--- NOTE | 2025-03-12 08:24 | A.OFFVIS_ITS ---
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 Allergies No Known Allergies (No Known Allergies*) Allergy (Verified 03/12/25 08:25) Medication List - Last Reconciled 03/12/25 by Bhavin Page MD bisacodyl (Dulcolax (bisacodyl)) 5 mg PO BEDTIME bupropion HCl SR 150 mg PO DAILY 90 days cholecalciferol (vitamin D3) 50 mcg PO DAILY esomeprazole magnesium (Nexium) 40 mg PO DAILY ibuprofen 800 mg PO DAILY PRN 90 days HPI 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: Details: Start time: 8.12am, End time: 9.06am ?I spent 49 minutes speaking with the patient on the phone plus an additional 5 minutes reviewing and updating records for a total of 54 minutes HPI Comments Details: Previous weight loss efforts: Wakes up: 5am, Sleeps: 9pm Breakfast: 6am (eggs and cheese sandwich or omelette) Lunch: 12pm (salad, banana, yogurt) Dinner: 6pm (chicken tenders and fried, Degroot's pie) Snacks: 10am (banana or yogurt), 8pm (Chocolate bar, or ice cream, chips) Exercise: treadmill (tracks calories and inclines), stationary bike (tracks calories) Beverages: Coffee: 1 cup/d (cream and sugar), Tea: none, Soda: none, Juice: none, ETOH: none PFSH Medical History (Updated 03/12/25 @ 08:27 by Bhavin Page MD) DJD (degenerative joint disease) Morbid (severe) obesity due to excess calories PCOS (polycystic ovarian syndrome) Sleep apnea Brown's esophagus Anxiety Vitamin D deficiency Irregular menses Multinodular thyroid Surgical History History of esophagogastroduodenoscopy (EGD) H/O colonoscopy History of hysterectomy Hx of biopsy History of back surgery Hiatal hernia History of laparoscopy Family History Father Diabetes mellitus HTN (hypertension) CVD (cardiovascular disease) Substance use disorder Mother Drug addict End stage liver disease Asthma Substance use disorder Brother Substance use disorder Sister No problems noted. Maternal Aunt Family history of thyroid problem Paternal Aunt Substance use disorder Paternal Uncle Substance use disorder Social History Household Members: Significant Other Housing: House Alcohol intake: current Alcohol intake frequency: does not drink Patient Tobacco Use Status: Former Tobacco user Cigarette Packs Per Day: 1 Years Smoked: 30 e-Cigarette/Vaping Use: Never Used Second Hand Smoke Exposure: No service: No Current occupational status: employed Current occupation: [employer] Current occupational exposures/hazards: No Cognitive needs: No Hearing needs: No Vision needs: No Female Reproductive History Menstrual Age of Menarche: 14 Telehealth Telehealth Telehealth Platform: Telephone Location of provider rendering services: practice address Location of patient: address on file Patient Identification confirmed using: Name, : Yes Telehealth method: voice only Patient verbally consented to treatment: Yes Patient verbally consented to billing insurance company: Yes Patient informed of any privacy concerns related to visit: Yes Minutes spent on Phone/Video with Pt.: 54 Assessment & Plan Assessment & Plan (1) Morbid (severe) obesity due to excess calories: Code(s): E66.01 - Morbid (severe) obesity due to excess calories Category: Medical Plan: 1.? Plan for lap sleeve gastrectomy. If diaphragmatic or ventral hernias are present at time of surgery, these will be repaired laparoscopically as well. I emphasized the importance of close follow-up, adherence to instructions and good communication. The surgery does not replace the need to change your lifestlyle which is the cause of the obesity problem. The surgery provides the motivation to try again to change your lifestyle, it reduces the appetite and make the transition to a better lifestyle easier and doubles the amount of weight you would lose compared to doing the lifestyle change without the surgery. You will need to be on a liquid diet with protein shakes for 2 weeks before surgery to maximize weight loss and boost your nutritional status to recover better from surgery and also for the first two weeks after surgery to let the stomach heal before we introduce other foods. After the first 2 weeks we will introduce protein bars and soft foods like scrambled eggs, cottage cheese and yogurt and after the 6th week will introduce meat, fish and cooked vegetables in small amounts. Over time you should be able to eat everything in small amounts. Side effects like nausea, vomiting, heartburn or abdominal pain are not common in the practice unless you are not following in the practice. This operation requires lifetime commitment to following in our practice and communication with me. You will much less weight and experience side effects if you don?t communicate or not following in the practice. Complications are rare and in our practice is about 1/10 of the national average. However, you can develop bleeding that may require transfusion (hasn?t happened for year in the practice), you may from complications (we did not have any deaths in the practice) and infections. Infections are usually a result of breakdown in communication or not understanding or following directions correctly. They are difficult to treat, they can happen during the first 6 weeks, they may require to be in the hospital for weeks or even months, not being able to eat by mouth and you may have drains and surgeries to try and correct the issue. Other risks and complications include possible conversion to an open procedure, leaks, small bowel obstruction, blood clots, cardiac, or pulmonary complications, as nursing home complications such as ulcers, insufficient weight loss and vitamin deficiencies. 2. Nutritional counseling. Start with one CELEBRATE REBUILD protein (buy online with the link I gave you) shake (ONE scoop in 8oz low fat unsweetened almond milk) at 6am-8am, 1 protein bar (CELEBRATE protein bars, buy at [facility], buy online with the link I gave you) ) at 9am-11am, another CELEBRATE REBUILD protein shake (ONE scoop in 8oz low fat unsweetened almond milk) at 12pm-2pm, another Celebrate protein bar at 3pm-6pm, dinner at 6pm (10 forks of protein and 10 forks of salad/vegetables) AND another HALF protein bar after dinner at 8pm-9pm. So you do 2 protein shakes, 2.5 protein bars and one meal per day. Meal to include lean meat (beef, fish, pork, turkey, chicken), or bangladeshi yogurt, or egg whites, or beans with a salad with olive oil and fruits (berries, pears, apples, kiwi). Avoid salt, breads, potatoes, rice, pasta, desserts. 3. Each shake would be drunk slowly, like coffee in a period of 2 hours. 4. Cut each bar in 4 pieces and eat each piece in 30min ?to make each bar last 2 hours. 5. I emphasized the importance of measuring accurately the food portion and measure it when serving the food in plate 6. The meal portions include 10 full-size forks of meat and 10 full-size forks of salad. You always eat the meat portion but you can replace up to 5 forks for salad/vegetables with rice, potatoes or pasta, or a fruit ?if you like. The less you do it the better weight loss will be. 7. One full-size fork is what it can be scooped on the fork without falling aside and not what can be bit with the fork. Use regular forks like those you find in a typical restaurant. 8.? Please buy the body composition scale we discussed and send me weight measurements as soon as possible and then once a week. Always include your diet and exercise plan. 9. Start treadmill with an incline of 2.0 and speed of 3.0 mph. Increase incline by 1 every 3 min to a max incline of 8.0, stay 3min at 8.0 and then return to 2.0 and repeat same steps until calorie goal is met. Goal is to burn 2000 calories per week on exercise, which means either 300 calories daily. 10. Goal is to lose at least 1.5-2lbs per week 11. Goal to lose 10% of your weight before surgery, which is about 30lbs. Ultimate weight goal: 243lbs before surgery 12. Please follow the diet plan exactly without any change. If you don't like something about the plan or you feel hungry you need to communicate with me so I can help you revise the plan. You should not change the plan yourself 13. To be scheduled for EGD to assess the stomach's anatomy. The possibility of biopsies was discussed. Patient needs to avoid use of NSAIDs and aspirin for 1 week prior to EGD. You must be on liquids only the day before your endoscopy. Risks of perforation and bleeding was discussed with the patient. This will be an outpatient procedure with IV sedation.
[2025-03-12 08:38] VITALS: BMI 42.8
== END 2025-03-12 09:07 | disposition home or self-care (01) ==
LOC: HO.HBS 08:13
PROVIDERS: PCP Nurse Practitioner Family; Visit Provider Surgery
DX: E66.01 Morbid (severe) obesity due to excess calories (principal)
CPT/HCPCS: 99204

== ENCOUNTER 2025-03-20 07:48 | Outpatient (REF) | payer OTHER, SELFPAY ==
[2025-03-20 08:23] LABS: Hemoglobin A1C 96.1962 umol/L
[2025-03-20 08:42] LABS: Iron 37 mcg/dL (30-160); Percent Iron Saturation 15 % (15-50); Total Iron Binding Capacity 249 mcg/dL (228-428); Unsaturated Iron Binding 212 ug/dL
[2025-03-20 08:48] LABS: Ferritin 70 ng/mL (10-250)
[2025-03-20 09:00] LABS: Folate 7.0 ng/mL (> or = 4.0); Vitamin B12 219 pg/mL (200-900)
== END 2025-03-20 07:49 | disposition home or self-care (01) ==
LOC: HO.LAB 07:48
PROVIDERS: Visit Provider Physician Assistant Medical
DX: Z13.1 Encounter for screening for diabetes mellitus (principal); Z13.0 Encounter for screening for diseases of the blood and blood-forming organs and certain disorders involving the immune mechanism; G47.19 Other hypersomnia; E04.9 Nontoxic goiter, unspecified; E66.01 Morbid (severe) obesity due to excess calories; R53.82 Chronic fatigue, unspecified
CPT/HCPCS: 36415; 82306; 82607; 82728; 82746; 83036; 83090; 83540; 83921; 84443

== ENCOUNTER → 2025-03-27 08:26 | Outpatient (REF) | payer OTHER, SELFPAY ==
--- NOTE | 2025-03-27 08:35 | ECG_ITS ---
Test Reason : obesity Blood Pressure : */* mmHG Vent. Rate : 58 BPM Atrial Rate : 58 BPM P-R Int : 136 ms QRS Dur : 80 ms QT Int : 410 ms P-R-T Axes : 44 33 19 degrees QTcB Int : 402 ms Sinus bradycardia Otherwise normal ECG No previous ECGs available Referred By: Bhavin Page Electronically Signed By: Sanjeev Snell
--- OUTSIDE RECORDS SUMMARY | 2025-03-27 08:43 | XMS_ITS | Patient Health Record ---
Author Organization [facility] Address [address] [place] [address] Care Team Providers Care Manager Intensive Care Name Role Phone Brooks Peng Unavailable [phone] Reason For Referral No Information Plan Of Treatment No Information
[2025-03-27 08:57] LABS: MANUAL DIFF FLAG NO
[2025-03-27 09:11] LABS: Hematocrit 42.4 % (37.0-47.0); Hemoglobin 13.8 g/dl (12.0-16.0); Imm Gran Abs Auto 0.02 X10*3/uL (0.00-0.03); Imm Gran Pct Auto 0.3 % (0.0-0.4); Lymphocytes Absolute Auto 2.0 X10*3/uL (1.2-4.9); Mean Corpuscular HGB Conc 32.5 g/dl (31.0-35.0); Mean Corpuscular Hemoglobin 26.5 pg (27.0-33.0); Mean Corpuscular Volume 81.5 fL (80.0-98.0); NRBC Abs Auto 0.000 X10*3/uL (0.0-0.012); NRBC Pct Auto 0.0 /100WBC (0.0-0.2); Platelet Count 376 X10*3/uL (160-400); Red Blood Count 5.20 X10*6/uL (4.20-5.50); White Blood Count 7.6 X10*3/uL (4.8-10.8)
[2025-03-27 09:57] LABS: Alanine Aminotransferase 17 U/L (0-31); Albumin Level 4.4 g/dL (3.5-5.0); Alkaline Phosphatase 83 U/L (39-117); Anion Gap 14 (12-20); Aspartate Amino Transferase 26 U/L (5-31); Blood Urea Nitrogen 15 mg/dL (9-16); Calcium 9.4 mg/dL (8.4-10.2); Carbon Dioxide 23 mmol/L (22-29); Chloride 106 mmol/L (96-108); Cholesterol 138 mg/dL (<200); Estimated Glomerular Filt Rate > 60; HDL Cholesterol 36 mg/dL (>40); Potassium 4.4 mmol/L (3.3-5.1); Sodium 139 mmol/L (135-145); Total Protein 7.0 g/dL (6.5-8.0); Triglycerides 70 mg/dL (<150)
== END ==
LOC: HO.SL 08:26
PROVIDERS: Absent Provider Surgery; PCP Nurse Practitioner Family; Visit Provider Physician Assistant Medical
DX: Z13.1 Encounter for screening for diabetes mellitus (principal); G47.19 Other hypersomnia; E04.9 Nontoxic goiter, unspecified; E66.01 Morbid (severe) obesity due to excess calories
CPT/HCPCS: 36415; 80053; 80061; 83036; 83525; 84425; 84590; 84630; 85025; 86140; 93005

== ENCOUNTER → 2025-03-27 08:35 | Outpatient (BNV) | payer OTHER, SELFPAY | PROVIDERS: Absent Provider Surgery; PCP Nurse Practitioner Family; Visit Provider Internal Medicine Cardiovascular Disease | DX: R00.1 Bradycardia, unspecified (principal) | CPT/HCPCS: 93010 ==

== ENCOUNTER → 2025-03-28 08:35 | Outpatient (BNV) | payer OTHER, SELFPAY | PROVIDERS: Absent Provider Surgery; PCP Nurse Practitioner Family; Visit Provider Psychiatry & Neurology Neurology | DX: G47.33 Obstructive sleep apnea (adult) (pediatric) (principal) | CPT/HCPCS: 95806 ==